=== PATIENT | male | born 1940 | race Caucasian/White ===

== ENCOUNTER → 2016-10-10 | Outpatient (CLI) | payer OTHER, MEDICARE ==
--- NOTE | 2016-10-10 14:54 | KCIC ---
Examination: MRI of the left ankle without contrast HISTORY History of generalized left foot, ankle pain, swelling, for 2 months. COMPARISON None available. TECHNIQUE Multiplanar, multisequence imaging of the left ankle without contrast Findings : The attachment of the Achilles tendon to the calcaneus grossly appears intact. The attachment of the plantar fascia to the inferior aspect of the calcaneus grossly appears intact. There is a vertical oriented low T1, low T2 signal identified in the anterior process of the calcaneus, best visualized on series 4 image #9 likely fracture probably stress fracture with a moderate trabecular edema identified in the anterior calcaneus and the lateral aspect of the talus. There is faint subtle low T1 signal identified in the lateral process of the talus with some edema. Small amount of fluid identified about the posterior tibialis tendon, flexor hallucis longus, flexor digitorum tendons. There is moderate tendinosis of the posterior tibialis tendon. Peroneus quartus tendon is identified. There is suggestion of splitting of the peroneus brevis tendon which Chevron appearance on series 5 image #16 could be a longitudinal split tear of the peroneus brevis. Peroneus longus tendon grossly appears intact. The anterior tibialis tendon, extensor compartment tendons grossly appears intact. There is minimal trabecular edema identified in the cuboid bone,. The visualized cuneiform bones, grossly appears unremarkable Mild degenerative changes identified in the talonavicular joint. Mild trabecular edema identified in the anterior and medial talus. There is a obliteration of fat in the sinus tarsi. Small osteophyte formation identified in superior aspect of the talonavicular joint. Moderate soft tissue edema identified surrounding the ankle joint and the hindfoot. Small ankle joint effusion is identified. The visualized anterior tibiofibular and posterior tibiofibular ligament, and posterior talofibular ligament are intact. The anterior talofibular ligament demonstrates increased signal with some undulation could be ligament injury, best visualized on series 8 image #22. There is mild trabecular edema identified in the medial aspect of the talus. The deltoid ligament appears intact. There is mild increased T2 signal identified in the deep fibers of the deltoid ligament. IMPRESSION - Vertical low T1, T2 signal identified in the anterior process of the calcaneus and surrounding moderate trabecular edema likely stress fracture. There is subtle low T1 signal identified in the lateral process of the talus with surrounding moderate patellar edema, question stress fracture or stress reaction changes. - The anterior talofibular ligament is somewhat undulated could be secondary to injury.Few of the fibers appear continuous. 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 - Moderate tendinopathy posterior tibialis tendon. - Small amount of fluid identified about the posterior tibialis tendon, flexor hallucis longus, flexor digitorum tendons likely tenosynovitis. - Faint trabecular edema identified in the medial aspect of the talus at the site of attachment of fibers of the deltoid ligament, nonspecific could be sprain of the deltoid ligament. - Moderate soft tissue edema identified surrounding the ankle joint and the hindfoot, nonspecific. - Small ankle joint effusion. - There is suggestion of splitting of the peroneus brevis tendon which Chevron appearance on series 5 image #16 could be a longitudinal split tear of the peroneus brevis. - Peroneus quartus tendon identified. Electronically signed by: Yogesh Perez (Oct 10, 2016 14:52:55)
--- NOTE | 2016-10-10 15:24 | KCIC ---
Examination: MRI of the left forefoot without contrast. HISTORY History of generalized foot pain, swelling for 2 months. COMPARISON None available. TECHNIQUE Multiplanar, multisequence MR imaging of the left foot were performed without contrast. Findings: Mild trabecular edema identified in the cuboid bone and in the partially visualized distal talus. Degenerative changes identified in the talonavicular joint with small superior osteophyte formation. Partially visualized vertical oriented nondisplaced fracture of the anterior process of the calcaneus identified. The Lisfranc ligament grossly appears intact. The intercuneiform ligaments appear intact. Mild soft tissue edema identified in the forefoot region. The alignment of the tarsal bones, metatarsophalangeal joints, visualized interphalangeal joints grossly appears unremarkable. IMPRESSION 1. Partially visualized vertical oriented nondisplaced fracture of the anterior process of the calcaneus probably stress fracture. 2. Mild trabecular edema identified in the distal calcaneus, cuboid bone and the talus. 3. Degenerative changes talonavicular joint. Electronically signed by: Yogesh Perez (Oct 10, 2016 15:23:52)
== END | disposition home or self-care (01) ==
LOC: KCIC MRI 13:01
PROVIDERS: ATTEND Orthopaedic Surgery Sports Medicine
DX: M79.672 Pain in left foot (principal); M25.472 Effusion, left ankle
CPT/HCPCS: 73718; 73721

== ENCOUNTER 2017-06-05 09:15 | Outpatient (CLI) | payer OTHER ==
[~2017-06-05] VITALS: Ht 180.3 cm; Wt 102.5 kg
[2017-06-05] VITALS (14 sets, daily range): BP systolic 147–185; BP diastolic 78–115
[2017-06-05] MEDS ORDERED: ATOR10TA60 PO (09:36)
[2017-06-05] MEDS ORDERED: LOSA50TA6 PO (09:37)
[2017-06-05] MEDS ORDERED: FURO-69 PO (09:37)
[2017-06-05] MEDS ORDERED: CARV3.122 PO (09:38)
[2017-06-05] MEDS ORDERED: LEVO5TAB2 PO (09:39)
[2017-06-05] MEDS ORDERED: CYCL10TA2 PO (09:40)
[2017-06-05 09:45] LABS: HEMATOCRIT 40.1 % (39.0-53.0); HEMOGLOBIN 13.1 g/dL (13.0-17.5); RED BLOOD COUNT 4.96 x10^6/uL (4.30-5.70); RED CELL DISTRIBUTION WIDTH 15.2 % (11.5-14.5); WHITE BLOOD COUNT 5.8 x10^3/uL (4.0-11.0)
[2017-06-05 09:53] LABS: INR 1.3 (0.8-1.1); PROTHROMBIN TIME PATIENT 15.1 SEC (11.7-14.0)
[2017-06-05] MEDS ORDERED: LIDOCAINE 2% 20 ML VIAL. ONE (09:54)
[2017-06-05 10:11] LABS: CALCIUM 8.7 mg/dL (8.5-10.1); CREATININE 0.9 mg/dL (0.7-1.3); GFR 82.3; POTASSIUM 3.9 mmol/L (3.5-5.1)
[2017-06-05] MEDS ORDERED: IOHEXOL 300 MG/ML 100ML VIAL. ONE (10:13)
[2017-06-05] MEDS ORDERED: VERAPAMIL 5 MG/2 ML VIAL. ONE (10:27)
[2017-06-05] MEDS ORDERED: MIDAZOLAM HCL/PF 5 MG/5 ML VIAL. ONE (10:27)
[2017-06-05] MEDS ORDERED: fentaNYL PF VIAL 100 MCG/2 ML VIAL ONE (10:27)
[2017-06-05] MEDS ORDERED: HEPARIN for IV BOLUS 10,000 UNIT/10 ML VIAL. ONE (10:27)
[2017-06-05] MEDS ORDERED: NITROGLYCERIN 200 MCG/2 ML SYRINGE FOR CATH/VASC LAB. ONE (10:29)
--- NOTE | 2017-06-05 10:36 | PDOC ---
MODERATE SEDATION ASSESSMENT RISKS/ALTERNATIVES Risks/Alternatives Risks and alternatives of this type of sedation and procedure discussed with: RISK/ALTERNATIVES: Patient H & P ON CHART H & P H & P on chart and reviewed for co-morbid conditions and appropriate labs. H&P ON CHART: Yes STATUS PREG STATUS ASSESSED: N/A MEDS/ALLERGIES REVIEWED Meds/Allergies Reviewed Medications and Allergies including time and route of recently administered narcotics and sedatives. MEDS/ALLERGIES REVIEWED: Yes ASA RATING ASA RATING: II AIRWAY ASSESSMENT Airway Assessment Airway patency, oral function limitations, presence of caps, crowns, dentures, partials, and ability to extend neck assessed. AIRWAY ASSESSMENT: Yes MALLAMPATI SCORE MALLAMPATI SCORE: II PRE-SEDATION ASSESSMENT PRE-SEDATION ASSESSMENT: Yes MEKA VARGAS MD Jun 05, 2017 10:36
[2017-06-05] MEDS ORDERED: NITROGLYCERIN 200 MCG/2 ML SYRINGE FOR CATH/VASC LAB. IART ONE (10:45)
[2017-06-05] MEDS ORDERED: IOHEXOL 300 MG/ML 100ML VIAL. IART ONE (10:45)
[2017-06-05] MEDS ORDERED: HEPARIN for IV BOLUS 10,000 UNIT/10 ML VIAL. IART ONE (10:45)
[2017-06-05] MEDS ORDERED: VERAPAMIL 5 MG/2 ML VIAL. IART ONE (10:45)
[2017-06-05] MEDS ORDERED: fentaNYL PF VIAL 100 MCG/2 ML VIAL IV ONE (10:45)
[2017-06-05] MEDS ORDERED: LIDOCAINE 2% 20 ML VIAL. IJ ONE (10:45)
[2017-06-05] MEDS ORDERED: MIDAZOLAM HCL/PF 5 MG/5 ML VIAL. IV ONE (10:45)
[2017-06-05] MEDS ORDERED: CONTRAST GIVEN MC PRN (11:00)
[2017-06-05] MEDS ORDERED: IV 1/2 NORMAL SALINE 1,000 ML IV ONE (11:30)
--- NOTE | 2017-06-05 13:05 | CARD ---
APPROVED REPORT Procedure(s) performed: Coronaries, LV Moderate Sedation: 51 Minutes HISTORY : The patient is a 76 year-old male with a history of . INDICATION The indication(s) include : peripheral edema, dyspnea. PROCEDURE NARRATIVE The patient was brought electively to the cardiac catheterization lab. A timeout was performed confi rming the patient's name, date of , procedure, and site of procedure. All necessary personnel w ere wearing the appropriate protective equipment and radiation monitor devices. After explaining the risks and benefits of the procedure and alternatives, informed consent was obtained. (See nursing no arnaud for medications administered). The right wrist was sterilely prepped and draped in the usual fas hion. The right wrist was infiltrated with 1 mL of 2% lidocaine for subcutaneous anesthesia. A 6 Fr ench Terumo glide sheath was inserted into the right radial artery without difficulty. Attempts to e ngage the coronary arteries with a TIG 4.0 and Peng catheters were unsuccessful due to subclavian to rtuousity. Right groin access in the RCFA was obtained via the modified seldinger technique under 1% lidocaine local anesthesia. A 6Fr sheath was placed. Right and left coronary angiography was perform ed using a JL4 and JR4 catheters. Left ventricular end diastolic pressure was obtained with a Peng catheter and pullback was performed. Left ventriculography deferred due to renal insufficiency. All catheter exchanges and advancements were performed over a guidewire. At case completion the right ra dial sheath was removed and a Terumo radial band was applied with 13 ml of air. The groin sheath was removed and an Angioseal device was placed for hemostasis. The patient tolerated the procedure well and there were no immediate complications. HEMODYNAMICS: LVEDP 18 mm Hg No gradient on LV to aortic pullback. LEFT VENTRICULOGRAM: Deferred. CORONARY ANGIOGRAPHY: LM is a large caliber vessel with normal angiographic appearance. LAD is a large caliber vessel with mild luminal irregularities. D1 is a moderate caliber vessel with mild luminal irregularities. LCx is a large caliber non-dominant vessel with a mid 40% stenosis. There is also mild focal ectasia in the mid segment. OM1 is a moderate caliber vessel with normal angiographic appearance. RCA is a large caliber dominant vessel with proximal/mid calcification with mild luminal irregulariti es. RPDA and RPL are moderate caliber vessels with normal angiographic appearance. Conclusion 1. No significant coronary artery disease. 2. Normal left sided filling pressures. Recommendations Aggressive Medical Therapy
[2017-06-05] MEDS ORDERED: 0.9 % SODIUM CHLORIDE 10 ML DISP.SYRIN. IV PRN (13:15)
[2017-06-05] MEDS ORDERED: NITROGLYCERIN SUBLINGUAL 0.4 MG BOTTLE OF 25. SL PRN (13:15)
--- NOTE | 2017-06-11 08:06 | CARD ---
APPROVED REPORT EXAM: Two-dimensional and M-mode echocardiogram with Doppler and color Doppler. Other Information Quality : Fair INDICATION post cath 2D DIMENSIONS RVDd2.9 (2.9-3.5cm)Left Atrium(2D)4.0 (1.6-4.0cm) IVSd1.2 (0.7-1.1cm)Aortic Root(2D)3.3 (2.0-3.7cm) LVDd4.6 (3.9-5.9cm)LVOT Diameter2.0 (1.8-2.4cm) PWd1.2 (0.7-1.1cm)LVDs3.9 (2.5-4.0cm) SV34.1 mlLVEF(%)50.0 (>50%) Aortic Valve AoV Peak Temo.112.4cm/sAoV VTI24.4cm AO Peak GR.5.1mmHgLVOT Peak Temo.82.9cm/s LVOT VTI 15.81cmAO Mean GR.3mmHg DOMENICA (VMAX)2.16cy0ZAB (VTI)2.10cm2 Mitral Valve MV E Ypldvnwn95.4cm/sMV DECEL [id number] MV A Tsjklnur14.3cm/sMV E Mean Gr.1mmHg MV ZXM19pjA/A Ratio1.2 MV A Aifzfmmn640lxXSP (PHT)5.81cm2 TDI E/Lateral E'6.8E/Medial E'10.7 Pulmonary Valve PV Peak Rqclhhem09.3cm/sPV Peak Grad.2mmHg RVOT VTI14.2cm Tricuspid Valve TR P. Qsiamdqx44jc/sTR Peak Gr.1mmHg Pulmonary Vein S1 Kfmyfnez30.3cm/sD2 Gbuoswvh07.0cm/s LEFT VENTRICLE The left ventricle is normal size. There is borderline concentric left ventricular hypertrophy. The l eft ventricular systolic function is low normal. The ejection fraction is estimated at 50%. There is normal LV segmental wall motion. The left ventricular diastolic function and filling is normal for ag e. RIGHT VENTRICLE The right ventricle is normal size. There is normal right ventricular wall thickness. The right ventr icular systolic function is normal. ATRIA The left atrium size is normal. The right atrium size is normal. The interatrial septum is intact wit h no evidence for an atrial septal defect or patent foramen ovale as noted on 2-D or Doppler imaging. AORTIC VALVE The aortic valve is normal in structure and function. Doppler and Color Flow revealed trace aortic re gurgitation. There is no significant aortic valvular stenosis. MITRAL VALVE The mitral valve is normal in structure and function. Doppler and Color Flow revealed trace mitral re gurgitation. TRICUSPID VALVE The tricuspid valve is normal in structure and function. Doppler and Color Flow revealed no tricuspid valve regurgitation noted. PULMONIC VALVE The pulmonary valve is normal in structure and function. Doppler and Color Flow revealed no pulmonic valvular regurgitation. GREAT VESSELS The aortic root is normal in size. Normal pulmonary venous flow (Doppler). The IVC is normal in size and collapses >50% with inspiration. PERICARDIAL EFFUSION There is no pleural effusion. There is no evidence of significant pericardial effusion. Critical Notification Critical Value: No <Conclusion> The left ventricular systolic function is low normal. The ejection fraction is estimated at 50%. Trace aortic regurgitation. Trace mitral regurgitation. There is no evidence of significant pericardial effusion.
== END 2017-06-05 16:00 | disposition home or self-care (01) ==
LOC: CCL 09:15
PROVIDERS: ATTEND Internal Medicine Cardiovascular Disease
DX: I25.10 Atherosclerotic heart disease of native coronary artery without angina pectoris (principal); E78.00 Pure hypercholesterolemia, unspecified; I10 Essential (primary) hypertension; F17.200 Nicotine dependence, unspecified, uncomplicated
CPT/HCPCS: 36415; 80048; 85027; 85610; 93306; 93458; 99152; 99153; C1769; C1892; J1644; J2250; J3010; J3490; Q9967; J2001

== ENCOUNTER 2018-02-08 05:54 | Inpatient (IN) | payer MEDICARE ==
[2018-02-08] MEDS: IOHEXOL 300 MG/ML 100ML VIAL. IV (06:57)
[2018-02-08] MEDS ORDERED: CONTRAST GIVEN. MC (07:00)
[2018-02-08] MEDS ORDERED: ACETAMINOPHEN 325 MG TABLET. PO (07:00)
[2018-02-08] MEDS ORDERED: ONDANSETRON PF 4 MG/2 ML VIAL. IV (07:00)
[2018-02-08 07:26] LABS: BASO % 0 % (0-3); EOS % 1 % (0-3); HEMATOCRIT 33.5 % (39.0-53.0); HEMOGLOBIN 11.1 g/dL (13.0-17.5); LYMPH # 0.8 x10^3/uL (1.0-4.8); LYMPH % 10 % (24-48); MEAN CORPUSCULAR HEMOGLOBIN 27 pg (25-35); MEAN CORPUSCULAR HGB CONC 33 g/dL (31-37); MEAN CORPUSCULAR VOLUME 81 fL (79-100); MONO # 0.5 x10^3/uL (0.0-1.1); MONO % 7 % (0-9); NEUT # 6.5 x10^3uL (1.8-7.7); NEUT % 82 % (31-73); PLATELET COUNT 342 x10^3/uL (140-400); RED BLOOD COUNT 4.15 x10^6/uL (4.30-5.70); RED CELL DISTRIBUTION WIDTH 17.2 % (11.5-14.5); WHITE BLOOD COUNT 7.9 x10^3/uL (4.0-11.0)
[2018-02-08 07:31] LABS: ADD MAN DIFF? YES
[2018-02-08 07:34] LABS: ANION GAP 5 (6-14); BLOOD UREA NITROGEN 11 mg/dL (8-26); CALCIUM 7.8 mg/dL (8.5-10.1); CARBON DIOXIDE 33 mmol/L (21-32); CHLORIDE 100 mmol/L (98-107); CREATININE 0.8 mg/dL (0.7-1.3); GLUCOSE 126 mg/dL (70-99); POTASSIUM 3.3 mmol/L (3.5-5.1); SODIUM 138 mmol/L (136-145)
[2018-02-08 07:39] LABS: INR 1.5 (0.8-1.1); PROTHROMBIN TIME PATIENT 17.8 SEC (11.7-14.0)
[2018-02-08] MEDS: BUDESONIDE 0.5 MG/2 ML NEBU. NEB ×2 (08:00→19:59)
[2018-02-08 09:10] LABS: % BANDS 1 % (0-9); % LYMPHS 9 % (24-48); % MONOS 4 % (0-10); % SEGS 86 % (35-66)
[2018-02-08 09:11] LABS: ANISOCYTOSIS PRESENT; PLT ESTIMATE ADEQUATE (ADEQUATE)
[2018-02-08] MEDS: cefTRIAXone IV Push 1 GM VIAL. IVP (09:22)
[2018-02-08] MEDS: MAGNESIUM SULFATE 2GM 50 ML IV (09:22)
[2018-02-08] MEDS: IPRATROPIUM BROMIDE 0.5 MG/2.5 ML NEBU. NEB ×4 (09:22→19:59)
[2018-02-08] MEDS: POTASSIUM CHLORIDE 20 MEQ TABLET.ER. PO (09:23)
[2018-02-08] MEDS: ENOXAPARIN 40 MG/0.4 ML SYRINGE. SQ (10:30)
[2018-02-08] MEDS: PANTOPRAZOLE 40 MG TABLET.DR. PO (10:46)
[2018-02-08] MEDS: LOSARTAN POTASSIUM 50 MG TABLET. PO (11:14)
[2018-02-08] MEDS: CARVEDILOL 3.125 MG TABLET. PO ×2 (11:14→14:16)
[2018-02-08] MEDS: ESMOLOL 2500MG/250ML PREMIX 250 ML IV ×3 (14:45→20:55)
[2018-02-08 18:12] LABS: MRSA BY PCR Negative (Negative)
[2018-02-08] MEDS: ATORVASTATIN CALCIUM 40 MG TABLET. PO (20:18)
[2018-02-09] MEDS: ESMOLOL 2500MG/250ML PREMIX 250 ML IV ×10 (00:32→23:53)
[2018-02-09] MEDS: IPRATROPIUM BROMIDE 0.5 MG/2.5 ML NEBU. NEB ×4 (07:28→19:42)
[2018-02-09] MEDS: BUDESONIDE 0.5 MG/2 ML NEBU. NEB ×2 (07:29→19:42)
[2018-02-09] MEDS: CARVEDILOL 3.125 MG TABLET. PO (08:00)
[2018-02-09 08:12] LABS: ANION GAP 4 (6-14); BLOOD UREA NITROGEN 11 mg/dL (8-26); CALCIUM 8.2 mg/dL (8.5-10.1); CARBON DIOXIDE 30 mmol/L (21-32); CHLORIDE 102 mmol/L (98-107); CREATININE 0.8 mg/dL (0.7-1.3); GLUCOSE 125 mg/dL (70-99); POTASSIUM 4.3 mmol/L (3.5-5.1); SODIUM 136 mmol/L (136-145)
[2018-02-09] MEDS: PANTOPRAZOLE 40 MG TABLET.DR. PO (08:14)
[2018-02-09] MEDS: cefTRIAXone IV Push 1 GM VIAL. IVP (08:14)
[2018-02-09] MEDS: LOSARTAN POTASSIUM 50 MG TABLET. PO (09:00)
[2018-02-09] MEDS: LACTOBACILLUS RHAMNOSUS GG 1 CAPSULE. PO ×2 (09:00→20:34)
[2018-02-09] MEDS: ENOXAPARIN 40 MG/0.4 ML SYRINGE. SQ (09:10)
[2018-02-09] MEDS: FUROSEMIDE 20 MG/2 ML VIAL. IVP (09:18)
[2018-02-09] MEDS ORDERED: SODIUM CHLORIDE 0.9% IV (12:45)
[2018-02-09] MEDS ORDERED: LABETALOL IV (12:45)
[2018-02-09] MEDS: ATORVASTATIN CALCIUM 40 MG TABLET. PO (20:33)
[2018-02-09] MEDS: ALPRAZolam 0.25 MG TABLET PO (20:33)
[2018-02-09] MEDS: MORPHINE SULFATE 2 MG/ML DISP.SYRIN. IV (21:42)
[2018-02-10] MEDS: ESMOLOL 2500MG/250ML PREMIX 250 ML IV ×3 (02:12→07:16)
[2018-02-10 04:57] LABS: HEMATOCRIT 35.8 % (39.0-53.0); MEAN CORPUSCULAR HEMOGLOBIN 27 pg (25-35); MEAN CORPUSCULAR HGB CONC 33 g/dL (31-37); MEAN CORPUSCULAR VOLUME 82 fL (79-100); PLATELET COUNT 364 x10^3/uL (140-400); RED BLOOD COUNT 4.37 x10^6/uL (4.30-5.70); RED CELL DISTRIBUTION WIDTH 17.4 % (11.5-14.5); WHITE BLOOD COUNT 6.1 x10^3/uL (4.0-11.0)
[2018-02-10 05:00] LABS: ANION GAP 6 (6-14); BLOOD UREA NITROGEN 13 mg/dL (8-26); CALCIUM 8.1 mg/dL (8.5-10.1); CARBON DIOXIDE 26 mmol/L (21-32); CHLORIDE 101 mmol/L (98-107); CREATININE 0.9 mg/dL (0.7-1.3); GLUCOSE 157 mg/dL (70-99); POTASSIUM 3.9 mmol/L (3.5-5.1); SODIUM 133 mmol/L (136-145)
[2018-02-10] MEDS: BUDESONIDE 0.5 MG/2 ML NEBU. NEB ×2 (07:40→15:44)
[2018-02-10] MEDS: IPRATROPIUM BROMIDE 0.5 MG/2.5 ML NEBU. NEB ×4 (07:40→19:30)
[2018-02-10] MEDS ORDERED: CONTRAST GIVEN. MC (09:45)
[2018-02-10] MEDS: IOHEXOL 300 MG/ML 100ML VIAL. IV (09:52)
[2018-02-10] MEDS: cefTRIAXone IV Push 1 GM VIAL. IVP (10:31)
[2018-02-10] MEDS: PANTOPRAZOLE 40 MG TABLET.DR. PO ×2 (10:32→10:41)
[2018-02-10] MEDS: LOSARTAN POTASSIUM 50 MG TABLET. PO (10:33)
[2018-02-10] MEDS: LACTOBACILLUS RHAMNOSUS GG 1 CAPSULE. PO ×2 (10:33→21:41)
[2018-02-10] MEDS ORDERED: LABETALOL 20 MG/4 ML DISP.SYRIN. IVP (13:00)
[2018-02-10] MEDS: METOPROLOL TART IMMED RELEASE 25 MG TABLET. PO (13:21)
[2018-02-10 17:43] LABS: INR 1.5 (0.8-1.1); PARTIAL THROMBOPLASTIN TIME 34 SEC (24-38); PROTHROMBIN TIME PATIENT 17.9 SEC (11.7-14.0)
[2018-02-10] MEDS: ATORVASTATIN CALCIUM 40 MG TABLET. PO (21:41)
[2018-02-10] MEDS: ALPRAZolam 0.25 MG TABLET PO (21:41)
[2018-02-11 05:25] LABS: HEMATOCRIT 38.4 % (39.0-53.0); HEMOGLOBIN 12.8 g/dL (13.0-17.5); MEAN CORPUSCULAR HEMOGLOBIN 27 pg (25-35); MEAN CORPUSCULAR HGB CONC 33 g/dL (31-37); MEAN CORPUSCULAR VOLUME 81 fL (79-100); PLATELET COUNT 444 x10^3/uL (140-400); RED BLOOD COUNT 4.76 x10^6/uL (4.30-5.70); RED CELL DISTRIBUTION WIDTH 17.3 % (11.5-14.5); WHITE BLOOD COUNT 6.3 x10^3/uL (4.0-11.0)
[2018-02-11 06:07] LABS: ANION GAP 6 (6-14); BLOOD UREA NITROGEN 10 mg/dL (8-26); CALCIUM 8.2 mg/dL (8.5-10.1); CARBON DIOXIDE 31 mmol/L (21-32); CHLORIDE 103 mmol/L (98-107); CREATININE 0.8 mg/dL (0.7-1.3); GLUCOSE 118 mg/dL (70-99); MAGNESIUM 1.8 mg/dL (1.8-2.4); POTASSIUM 3.1 mmol/L (3.5-5.1); SODIUM 140 mmol/L (136-145)
[2018-02-11] MEDS ORDERED: ePHEDrine PF IN SALINE 50 MG/5 ML DISP.SYRIN IV (06:18)
[2018-02-11] MEDS ORDERED: HEPARIN 30,000 UNIT/30 ML VIAL. ×3 (06:18→14:29)
[2018-02-11] MEDS ORDERED: ROCURONIUM 100 MG/10 ML VIAL. (06:18)
[2018-02-11] MEDS ORDERED: PHENYLEPHRINE 10 MG/ML VIAL. (06:18)
[2018-02-11] MEDS ORDERED: ETOMIDATE 20 MG/10 ML VIAL. IV (06:18)
[2018-02-11] MEDS ORDERED: SUFentanil 100 MCG/2 ML AMPUL. (06:19)
[2018-02-11] MEDS ORDERED: NITROGLYCERIN PREMIX 250 ML IV (06:19)
[2018-02-11] MEDS ORDERED: MIDAZOLAM HCL/PF 2 MG/2 ML VIAL. ×6 (06:20→15:03)
[2018-02-11] MEDS ORDERED: GELATIN SPONGE SIZE 100. (06:36)
[2018-02-11] MEDS ORDERED: THROMBIN TOPICAL 20,000 UNIT SPRAY.SYRN KIT TP (06:36)
[2018-02-11] MEDS ORDERED: SURGICEL NU-KNIT 3X4. (06:36)
[2018-02-11] MEDS: TRANEXAMIC ACID 1,000 MG in IV NORMAL SALINE 50ML 50 ML INJ ×2 (07:30→08:30)
[2018-02-11] MEDS: MANNITOL 20% PREMIX 500 ML IV (07:45)
[2018-02-11] MEDS: BUDESONIDE 0.5 MG/2 ML NEBU. NEB ×2 (08:00→19:43)
[2018-02-11] MEDS: IPRATROPIUM BROMIDE 0.5 MG/2.5 ML NEBU. NEB ×4 (08:00→19:43)
[2018-02-11] MEDS: cefTRIAXone IV Push 1 GM VIAL. IVP (08:00)
[2018-02-11] MEDS ORDERED: HEPARIN for IV BOLUS 10,000 UNIT/10 ML VIAL. ×4 (08:23→14:29)
[2018-02-11] MEDS ORDERED: AMINOCAPROIC ACID 5,000 MG/20 ML VIAL. IV (08:41)
[2018-02-11] MEDS: LACTOBACILLUS RHAMNOSUS GG 1 CAPSULE. PO (09:00)
[2018-02-11] MEDS: VANCOMYCIN 10GM VIAL for OR. (09:01)
[2018-02-11] MEDS: PAPAVERINE 60 MG/2 ML VIAL FOR OR ONLY. (09:19)
[2018-02-11] MEDS ORDERED: ISOFLURANE > 120 MINUTES. IH (09:40)
[2018-02-11] MEDS: POTASSIUM CHLORIDE 15 MEQ, SODIUM BICARBONATE VIAL 12.5 MEQ in IV ELECTROLYTE-S (PH 7.4... IRR (10:18)
[2018-02-11] MEDS: POTASSIUM CHLORIDE 70 MEQ, SODIUM BICARBONATE VIAL 12.5 MEQ, LIDOCAINE 2% 24 ML in IV E... IRR (10:18)
[2018-02-11] MEDS: INSULIN REGULAR VIAL 150 UNIT in 0.9 % SODIUM CHLORIDE 150ML 150 ML IV ×2 (10:30→17:12)
[2018-02-11] MEDS ORDERED: PROPOFOL 20 ML IV (10:55)
[2018-02-11] MEDS ORDERED: ROCURONIUM 50 MG/5 ML VIAL. (11:43)
[2018-02-11] MEDS ORDERED: POTASSIUM CHLORIDE (12:26)
[2018-02-11] MEDS ORDERED: PROTAMINE 250 MG/25 ML VIAL IV ×2 (12:31→13:56)
[2018-02-11 13:57] LABS: IMMEDIATE SPIN CROSSMATCH 1
[2018-02-11] MEDS: SURGICEL HEMOSTAT 4X8 EACH. (14:24)
[2018-02-11] MEDS ORDERED: MAGNESIUM SULFATE 5 GM/10 ML VIAL. (14:29)
[2018-02-11] MEDS ORDERED: LIDOCAINE 1% PF 5 ML VIAL. (14:29)
[2018-02-11] MEDS ORDERED: ALBUMIN HUMAN 25% 200 ML IV (14:29)
[2018-02-11] MEDS ORDERED: CALCIUM CHLORIDE 1,000 MG/10 ML DISP.SYRIN (14:29)
[2018-02-11 14:42] LABS: HEMATOCRIT 22.1 % (39.0-53.0); PLATELET COUNT 243 x10^3/uL (140-400); WHITE BLOOD COUNT 14.9 x10^3/uL (4.0-11.0)
[2018-02-11 14:46] LABS: HEMOGLOBIN 7.2 g/dL (13.0-17.5)
[2018-02-11 14:53] LABS: FIBRINOGEN 304 mg/dL (200-440); INR 1.9 (0.8-1.1); PARTIAL THROMBOPLASTIN TIME 42 SEC (24-38)
[2018-02-11 14:59] LABS: PROTHROMBIN TIME PATIENT 21.3 SEC (11.7-14.0)
[2018-02-11 15:45] LABS: IMMEDIATE SPIN CROSSMATCH 1 8
[2018-02-11] MEDS ORDERED: ONDANSETRON PF 4 MG/2 ML VIAL. IV (16:00)
[2018-02-11] MEDS ORDERED: ELECTROLYTE (ICU) PROTOCOL. MC (16:00)
[2018-02-11] MEDS ORDERED: MEPERIDINE PF 25 MG/ML VIAL. IV (16:00)
[2018-02-11] MEDS ORDERED: AMIODARONE 900 MG in IV DEXTROSE 5% 500 ML IV (16:00)
[2018-02-11] MEDS ORDERED: BISACODYL 10 MG SUPP.RECT. PR (16:00)
[2018-02-11] MEDS ORDERED: AMIODARONE 150 MG in IV DEXTROSE 5% 100ML 100 ML IV (16:00)
[2018-02-11] MEDS ORDERED: PROCHLORPERAZINE 10 MG/2 ML VIAL. IV (16:00)
[2018-02-11] MEDS ORDERED: 0.9 % SODIUM CHLORIDE 10 ML DISP.SYRIN. IV (16:00)
[2018-02-11] MEDS ORDERED: DEXTROSE 50% 25 GM / 50ML DISP.SYRIN. IV (16:00)
[2018-02-11] MEDS ORDERED: MAGNESIUM SULFATE 1GM 100 ML IV (16:00)
[2018-02-11] MEDS ORDERED: ALBUTEROL SULFATE 2.5 MG/3 ML NEBU. NEB (16:00)
[2018-02-11 16:26] LABS: ART BE ISTAT 8 mmol/L (0-3); ART BE ISTAT 9 mmol/L (0-3); ART GLUC ISTAT 122 mg/dL (70-99); ART GLUC ISTAT 136 mg/dL (70-99); ART HCO3 ISTAT 31 mmol/L (21-28); ART HCO3 ISTAT 32 mmol/L (21-28); ART HCT ISTAT 31 % (37-52); ART HCT ISTAT 36 % (37-52); ART HGB ISTAT 10.5 g/dL (14-18); ART HGB ISTAT 12.2 g/dL (14-18); ART ION CA ISTAT 1.06 mmol/L (1.13-1.32); ART ION CA ISTAT 1.09 mmol/L (1.13-1.32); ART K ISTAT 2.9 mmol/L (3.5-5.0); ART K ISTAT 3.2 mmol/L (3.5-5.0); ART NA ISTAT 141 mmol/L (135-145); ART NA ISTAT 142 mmol/L (135-145); ART PCO2 ISTAT 36 mmHg (35-45); ART PCO2 ISTAT 40 mmHg (35-45); ART PH ISTAT 7.51 (7.35-7.45); ART PH ISTAT 7.54 (7.35-7.45); ART PO2 ISTAT 153 mmHg (75-100); ART PO2 ISTAT 168 mmHg (75-100); ART SAT O2 SAT 100 % (95-99); ART TCO2 ISTAT 32 mmol/L (21-32); ART TCO2 ISTAT 33 mmol/L (21-32); TOSPEC ART
[2018-02-11 16:27] LABS: ART BE ISTAT 10 mmol/L (0-3); ART BE ISTAT 11 mmol/L (0-3); ART BE ISTAT 4 mmol/L (0-3); ART BE ISTAT 5 mmol/L (0-3); ART BE ISTAT 6 mmol/L (0-3); ART BE ISTAT 8 mmol/L (0-3); ART BE ISTAT 9 mmol/L (0-3); ART GLUC ISTAT 124 mg/dL (70-99); ART GLUC ISTAT 127 mg/dL (70-99); ART GLUC ISTAT 128 mg/dL (70-99); ART GLUC ISTAT 132 mg/dL (70-99); ART GLUC ISTAT 134 mg/dL (70-99); ART GLUC ISTAT 138 mg/dL (70-99); ART GLUC ISTAT 140 mg/dL (70-99); ART GLUC ISTAT 146 mg/dL (70-99); ART HCO3 ISTAT 28 mmol/L (21-28); ART HCO3 ISTAT 29 mmol/L (21-28); ART HCO3 ISTAT 30 mmol/L (21-28); ART HCO3 ISTAT 31 mmol/L (21-28); ART HCO3 ISTAT 32 mmol/L (21-28); ART HCO3 ISTAT 36 mmol/L (21-28); ART HCT ISTAT 23 % (37-52); ART HCT ISTAT 26 % (37-52); ART HCT ISTAT 29 % (37-52); ART HCT ISTAT 30 % (37-52); ART HCT ISTAT 31 % (37-52); ART HGB ISTAT 10.2 g/dL (14-18); ART HGB ISTAT 10.5 g/dL (14-18); ART HGB ISTAT 7.8 g/dL (14-18); ART HGB ISTAT 8.8 g/dL (14-18); ART HGB ISTAT 9.9 g/dL (14-18); ART ION CA ISTAT 0.98 mmol/L (1.13-1.32); ART ION CA ISTAT 1.03 mmol/L (1.13-1.32); ART ION CA ISTAT 1.05 mmol/L (1.13-1.32); ART ION CA ISTAT 1.06 mmol/L (1.13-1.32); ART ION CA ISTAT 1.07 mmol/L (1.13-1.32); ART ION CA ISTAT 1.09 mmol/L (1.13-1.32); ART K ISTAT 3.1 mmol/L (3.5-5.0); ART K ISTAT 3.2 mmol/L (3.5-5.0); ART K ISTAT 3.6 mmol/L (3.5-5.0); ART K ISTAT 3.9 mmol/L (3.5-5.0); ART NA ISTAT 138 mmol/L (135-145); ART NA ISTAT 139 mmol/L (135-145); ART NA ISTAT 140 mmol/L (135-145); ART NA ISTAT 141 mmol/L (135-145); ART NA ISTAT 142 mmol/L (135-145); ART PCO2 ISTAT 22 mmHg (35-45); ART PCO2 ISTAT 39 mmHg (35-45); ART PCO2 ISTAT 40 mmHg (35-45); ART PCO2 ISTAT 41 mmHg (35-45); ART PCO2 ISTAT 42 mmHg (35-45); ART PCO2 ISTAT 43 mmHg (35-45); ART PCO2 ISTAT 54 mmHg (35-45); ART PCO2 ISTAT 57 mmHg (35-45); ART PCO2 ISTAT 60 mmHg (35-45); ART PH ISTAT 7.33 (7.35-7.45); ART PH ISTAT 7.36 (7.35-7.45); ART PH ISTAT 7.44 (7.35-7.45); ART PH ISTAT 7.45 (7.35-7.45); ART PH ISTAT 7.46 (7.35-7.45); ART PH ISTAT 7.51 (7.35-7.45); ART PH ISTAT 7.74 (7.35-7.45); ART PO2 ISTAT 157 mmHg (75-100); ART PO2 ISTAT 159 mmHg (75-100); ART PO2 ISTAT 217 mmHg (75-100); ART PO2 ISTAT 341 mmHg (75-100); ART PO2 ISTAT 351 mmHg (75-100); ART PO2 ISTAT 356 mmHg (75-100); ART PO2 ISTAT 441 mmHg (75-100); ART PO2 ISTAT 459 mmHg (75-100); ART PO2 ISTAT 560 mmHg (75-100); ART SAT O2 SAT 100 % (95-99); ART SAT O2 SAT 99 % (95-99); ART TCO2 ISTAT 29 mmol/L (21-32); ART TCO2 ISTAT 31 mmol/L (21-32); ART TCO2 ISTAT 32 mmol/L (21-32); ART TCO2 ISTAT 33 mmol/L (21-32); ART TCO2 ISTAT 38 mmol/L (21-32); TOSPEC ART
[2018-02-11 16:49] LABS: BASE EXCESS COOX 2 mmol/L (-3-3); CARBON MONOXIDE 0.3 % (0.0-1.9); HCO3 COOX 26 mmol/L (21-28); METHEMOGLOBIN 0.4 % (0.0-1.9); OXYHEMOGLOBIN 96.4 %; PCO2 COOX 39 mmHg (35-46); PH COOX 7.45 (7.35-7.45); PO2 COOX 104 mmHg (65-108); SAT O2 COOX 97 % (92-99); TOTAL HEMOGLOBIN 10.8 g/dL
[2018-02-11 16:51] LABS: FIO2 COOX 80
[2018-02-11 16:52] LABS: HEMATOCRIT 28.6 % (39.0-53.0); HEMOGLOBIN 9.3 g/dL (13.0-17.5); MEAN CORPUSCULAR HEMOGLOBIN 27 pg (25-35); MEAN CORPUSCULAR HGB CONC 33 g/dL (31-37); MEAN CORPUSCULAR VOLUME 81 fL (79-100); PLATELET COUNT 261 x10^3/uL (140-400); RED BLOOD COUNT 3.52 x10^6/uL (4.30-5.70); RED CELL DISTRIBUTION WIDTH 17.1 % (11.5-14.5); WHITE BLOOD COUNT 13.4 x10^3/uL (4.0-11.0)
[2018-02-11 17:01] LABS: ANION GAP 7 (6-14); BLOOD UREA NITROGEN 11 mg/dL (8-26); CALCIUM 8.6 mg/dL (8.5-10.1); CARBON DIOXIDE 27 mmol/L (21-32); CHLORIDE 107 mmol/L (98-107); CREATININE 0.8 mg/dL (0.7-1.3); GLUCOSE 175 mg/dL (70-99); MAGNESIUM 2.1 mg/dL (1.8-2.4); POTASSIUM 3.7 mmol/L (3.5-5.1); SODIUM 141 mmol/L (136-145)
[2018-02-11 17:02] LABS: INR 1.5 (0.8-1.1); PROTHROMBIN TIME PATIENT 17.9 SEC (11.7-14.0)
[2018-02-11 17:03] LABS: PARTIAL THROMBOPLASTIN TIME 54 SEC (24-38)
[2018-02-11] MEDS: IV RINGERS,LACTATED 1000ML 1,000 ML IV ×2 (17:11→20:14)
[2018-02-11] MEDS: PROPOFOL 100 ML IV (17:12)
[2018-02-11] MEDS: AMIODARONE 900 MG in IV DEXTROSE 5% 500 ML IV (17:14)
[2018-02-11] MEDS: AMIODARONE 150 MG in IV DEXTROSE 5% 100ML 100 ML IV (17:15)
[2018-02-11] MEDS: POTASSIUM CHLORIDE 20MEQ 50 ML IV ×3 (18:03→19:23)
[2018-02-11 19:20] LABS: POC GLUCOSE 165 mg/dL (70-99)
[2018-02-11 19:20] LABS: POC GLUCOSE 146 mg/dL (70-99)
[2018-02-11 19:20] LABS: POC GLUCOSE 148 mg/dL (70-99)
[2018-02-11 19:49] LABS: ACT+ 149 SEC (90-125)
[2018-02-11 19:50] LABS: ACT+ 539 SEC (90-125)
[2018-02-11 19:50] LABS: ACT+ 496 SEC (90-125)
[2018-02-11 19:50] LABS: ACT+ 427 SEC (90-125)
[2018-02-11 19:50] LABS: ACT+ 569 SEC (90-125)
[2018-02-11 19:50] LABS: ACT+ > 1005 SEC (90-125)
[2018-02-11 19:50] LABS: ACT+ 616 SEC (90-125)
[2018-02-11 19:51] LABS: ACT+ 532 SEC (90-125)
[2018-02-11 19:51] LABS: ACT+ 444 SEC (90-125)
[2018-02-11 19:51] LABS: ACT+ 565 SEC (90-125)
[2018-02-11 19:51] LABS: ACT+ 141 SEC (90-125)
[2018-02-11] MEDS ORDERED: NOREPINEPHRIN 8MG/250ML PREMIX 250 ML IV (20:15)
[2018-02-11] MEDS ORDERED: EPINEPHRINE IV (20:15)
[2018-02-11] MEDS ORDERED: NORMAL SALINE IV (20:15)
[2018-02-11 20:32] LABS: POC GLUCOSE 132 mg/dL (70-99)
[2018-02-11] MEDS: ALBUMIN HUMAN 5% 250 ML IV (20:47)
[2018-02-11] MEDS: FAMOTIDINE 20 MG/2 ML VIAL IVP (20:59)
[2018-02-11 21:28] LABS: POC GLUCOSE 119 mg/dL (70-99)
[2018-02-11 21:49] LABS: HEMATOCRIT 26.7 % (39.0-53.0)
[2018-02-11 21:54] LABS: POTASSIUM 4.1 mmol/L (3.5-5.1)
[2018-02-11 22:06] LABS: BASE EXCESS ABG 2 mmol/L (-3-3); HCO3 ABG 26 mmol/L (21-28); PCO2 ABG 38 mmHg (35-46); PH ABG 7.45 (7.35-7.45); PO2 ABG 80 mmHg (65-108); SAT O2 ABG 95 % (92-99)
[2018-02-11] MEDS: MORPHINE SULFATE 2 MG/ML DISP.SYRIN. IV (22:19)
[2018-02-11 22:29] LABS: POC GLUCOSE 156 mg/dL (70-99)
[2018-02-11 22:30] LABS: FIO2 ABG 40
[2018-02-11] MEDS: ATORVASTATIN CALCIUM 40 MG TABLET. PO (23:24)
[2018-02-11] MEDS: oxyCODONE/APAP 5/325 1 TAB TABLET PO (23:24)
[2018-02-11] MEDS: SENNOSIDES/DOCUSATE 8.6/50MG TABLET. PO (23:25)
[2018-02-11 23:33] LABS: POC GLUCOSE 163 mg/dL (70-99)
[2018-02-12 00:38] LABS: POC GLUCOSE 155 mg/dL (70-99)
[2018-02-12] MEDS: MORPHINE SULFATE 2 MG/ML DISP.SYRIN. IV ×2 (01:14→03:08)
[2018-02-12 01:38] LABS: POC GLUCOSE 149 mg/dL (70-99)
[2018-02-12 02:41] LABS: POC GLUCOSE 125 mg/dL (70-99)
[2018-02-12 03:49] LABS: POC GLUCOSE 134 mg/dL (70-99)
[2018-02-12 04:55] LABS: POC GLUCOSE 133 mg/dL (70-99)
[2018-02-12 05:04] LABS: HEMATOCRIT 28.9 % (39.0-53.0); HEMOGLOBIN 9.5 g/dL (13.0-17.5); MEAN CORPUSCULAR HEMOGLOBIN 27 pg (25-35); MEAN CORPUSCULAR HGB CONC 33 g/dL (31-37); MEAN CORPUSCULAR VOLUME 81 fL (79-100); PLATELET COUNT 290 x10^3/uL (140-400); RED BLOOD COUNT 3.57 x10^6/uL (4.30-5.70); RED CELL DISTRIBUTION WIDTH 17.3 % (11.5-14.5); WHITE BLOOD COUNT 11.9 x10^3/uL (4.0-11.0)
[2018-02-12 05:25] LABS: ANION GAP 6 (6-14); BLOOD UREA NITROGEN 12 mg/dL (8-26); CALCIUM 8.6 mg/dL (8.5-10.1); CARBON DIOXIDE 26 mmol/L (21-32); CHLORIDE 107 mmol/L (98-107); CREATININE 0.9 mg/dL (0.7-1.3); GLUCOSE 146 mg/dL (70-99); MAGNESIUM 1.8 mg/dL (1.8-2.4); POTASSIUM 4.6 mmol/L (3.5-5.1); SODIUM 139 mmol/L (136-145)
[2018-02-12 06:04] LABS: POC GLUCOSE 128 mg/dL (70-99)
[2018-02-12] MEDS: MAGNESIUM SULFATE 1GM 100 ML IV (06:33)
[2018-02-12 07:03] LABS: POC GLUCOSE 143 mg/dL (70-99)
[2018-02-12 07:06] LABS: FIO2 ISTAT 100; TOSPEC VEN; VEN BASE EXCESS ISTAT 5 mmol/L (0-3); VEN GLUC ISTAT 137 mg/dL (70-99); VEN HCO3 ISTAT 30 mmol/L (24-28); VEN HCT ISTAT 29 % (37-52); VEN HGB ISTAT 9.9 g/dL (14-18); VEN ION CA ISTAT 1.05 mmol/L (1.13-1.32); VEN K ISTAT 3.1 mmol/L (3.5-5.0); VEN NA ISTAT 140 mmol/L (135-145); VEN O2 ISTAT 94 mmHg (20-40); VEN PCO2 ISTAT 47 mmHg (41-51); VEN PH ISTAT 7.41 (7.32-7.42); VEN SO2 ISTAT 97 %; VEN TCO2 ISTAT 31 mmol/L (21-32)
[2018-02-12] MEDS: IPRATROPIUM BROMIDE 0.5 MG/2.5 ML NEBU. NEB ×4 (07:42→20:24)
[2018-02-12] MEDS: BUDESONIDE 0.5 MG/2 ML NEBU. NEB ×2 (07:42→20:25)
[2018-02-12 08:19] LABS: POC GLUCOSE 145 mg/dL (70-99)
[2018-02-12] MEDS: cefTRIAXone IV Push 1 GM VIAL. IVP (08:31)
[2018-02-12] MEDS: oxyCODONE/APAP 5/325 1 TAB TABLET PO ×3 (08:32→23:03)
[2018-02-12] MEDS: METOPROLOL TART IMMED RELEASE 25 MG TABLET. PO ×3 (08:33→17:59)
[2018-02-12] MEDS: ASPIRIN ENTERIC COATED 325 MG TABLET.DR. PO (08:33)
[2018-02-12] MEDS: SENNOSIDES/DOCUSATE 8.6/50MG TABLET. PO ×2 (08:33→20:27)
[2018-02-12] MEDS: PANTOPRAZOLE 40 MG TABLET.DR. PO (08:33)
[2018-02-12] MEDS ORDERED: POLYETHYLENE GLYCOL 3350 17 GM PACKET. PO (09:00)
[2018-02-12 09:34] LABS: POC GLUCOSE 154 mg/dL (70-99)
[2018-02-12] MEDS: FUROSEMIDE 40 MG/4 ML VIAL. IVP (12:53)
[2018-02-12] MEDS: INSULIN LISPRO 300 UNITS/3 ML INSULN.PEN. SQ (17:30)
[2018-02-12] MEDS ORDERED: DEXTROSE 50% 25 GM / 50ML DISP.SYRIN. IV (17:45)
[2018-02-12 18:46] LABS: POC GLUCOSE 122 mg/dL (70-99)
[2018-02-12] MEDS: ATORVASTATIN CALCIUM 40 MG TABLET. PO (20:26)
[2018-02-13] MEDS: METOPROLOL TART IMMED RELEASE 25 MG TABLET. PO ×4 (02:06→18:07)
[2018-02-13] MEDS: oxyCODONE/APAP 5/325 1 TAB TABLET PO ×2 (06:23→21:13)
[2018-02-13 06:48] LABS: ANION GAP 3 (6-14); BLOOD UREA NITROGEN 22 mg/dL (8-26); CALCIUM 8.1 mg/dL (8.5-10.1); CARBON DIOXIDE 29 mmol/L (21-32); CHLORIDE 102 mmol/L (98-107); CREATININE 1.2 mg/dL (0.7-1.3); GFR 58.9; GLUCOSE 127 mg/dL (70-99); MAGNESIUM 2.1 mg/dL (1.8-2.4); POTASSIUM 4.6 mmol/L (3.5-5.1); SODIUM 134 mmol/L (136-145)
[2018-02-13] MEDS: INSULIN LISPRO 300 UNITS/3 ML INSULN.PEN. SQ ×3 (08:00→17:00)
[2018-02-13] MEDS: IPRATROPIUM BROMIDE 0.5 MG/2.5 ML NEBU. NEB ×4 (08:03→19:48)
[2018-02-13] MEDS: BUDESONIDE 0.5 MG/2 ML NEBU. NEB ×2 (08:03→19:48)
[2018-02-13] MEDS: PANTOPRAZOLE 40 MG TABLET.DR. PO (09:08)
[2018-02-13] MEDS: ASPIRIN ENTERIC COATED 325 MG TABLET.DR. PO (09:08)
[2018-02-13] MEDS: MAGNESIUM SULFATE 1GM 100 ML IV (09:08)
[2018-02-13] MEDS: SENNOSIDES/DOCUSATE 8.6/50MG TABLET. PO ×2 (09:08→21:13)
[2018-02-13] MEDS: cefTRIAXone IV Push 1 GM VIAL. IVP (09:09)
[2018-02-13 09:21] LABS: POC GLUCOSE 132 mg/dL (70-99)
[2018-02-13] MEDS: FUROSEMIDE 20 MG/2 ML VIAL. IVP (11:44)
[2018-02-13 11:48] LABS: POC GLUCOSE 139 mg/dL (70-99)
[2018-02-13] MEDS ORDERED: NOREPINEPHRIN 8MG/250ML PREMIX 250 ML IV (13:15)
[2018-02-13] MEDS: ALBUMIN HUMAN 5% 500 ML IV (13:30)
[2018-02-13] MEDS: IV RINGERS,LACTATED 1000ML 1,000 ML IV (13:30)
[2018-02-13 13:45] LABS: HEMATOCRIT 28.9 % (39.0-53.0); HEMOGLOBIN 9.4 g/dL (13.0-17.5); MEAN CORPUSCULAR HEMOGLOBIN 27 pg (25-35); MEAN CORPUSCULAR HGB CONC 33 g/dL (31-37); MEAN CORPUSCULAR VOLUME 82 fL (79-100); PLATELET COUNT 298 x10^3/uL (140-400); RED BLOOD COUNT 3.52 x10^6/uL (4.30-5.70); RED CELL DISTRIBUTION WIDTH 17.9 % (11.5-14.5); WHITE BLOOD COUNT 16.2 x10^3/uL (4.0-11.0)
[2018-02-13] MEDS: FUROSEMIDE 40 MG/4 ML VIAL. IVP (15:53)
[2018-02-13] MEDS: DIGOXIN IV 500 MCG/2 ML AMPUL. IV ×2 (17:16→17:47)
[2018-02-13 17:19] LABS: POC GLUCOSE 148 mg/dL (70-99)
[2018-02-13 17:52] LABS: POTASSIUM 4.6 mmol/L (3.5-5.1)
[2018-02-13 17:54] LABS: MAGNESIUM 2.2 mg/dL (1.8-2.4)
[2018-02-13] MEDS: AMIODARONE 900 MG in IV DEXTROSE 5% 500 ML IV (18:43)
[2018-02-13] MEDS: AMIODARONE 150 MG in IV DEXTROSE 5% 100ML 100 ML IV (18:43)
[2018-02-13] MEDS ORDERED: AMIODARONE 900 MG in IV DEXTROSE 5% 500 ML IV (18:45)
[2018-02-13] MEDS: ATORVASTATIN CALCIUM 40 MG TABLET. PO (21:13)
[2018-02-14 05:46] LABS: ADD MAN DIFF? NO
[2018-02-14 05:49] LABS: BASO # 0.1 x10^3/uL (0.0-0.2); BASO % 1 % (0-3); EOS # 0.1 x10^3/uL (0.0-0.7); EOS % 1 % (0-3); HEMATOCRIT 28.5 % (39.0-53.0); HEMOGLOBIN 9.4 g/dL (13.0-17.5); LYMPH # 1.3 x10^3/uL (1.0-4.8); LYMPH % 10 % (24-48); MEAN CORPUSCULAR HEMOGLOBIN 27 pg (25-35); MEAN CORPUSCULAR HGB CONC 33 g/dL (31-37); MEAN CORPUSCULAR VOLUME 82 fL (79-100); MONO # 0.9 x10^3/uL (0.0-1.1); MONO % 7 % (0-9); NEUT # 10.5 x10^3uL (1.8-7.7); NEUT % 82 % (31-73); PLATELET COUNT 300 x10^3/uL (140-400); RED CELL DISTRIBUTION WIDTH 17.6 % (11.5-14.5); WHITE BLOOD COUNT 12.8 x10^3/uL (4.0-11.0)
[2018-02-14 06:10] LABS: ANION GAP 5 (6-14); BLOOD UREA NITROGEN 24 mg/dL (8-26); CALCIUM 8.1 mg/dL (8.5-10.1); CARBON DIOXIDE 28 mmol/L (21-32); CHLORIDE 101 mmol/L (98-107); CREATININE 1.2 mg/dL (0.7-1.3); GFR 58.9; GLUCOSE 130 mg/dL (70-99); MAGNESIUM 2.2 mg/dL (1.8-2.4); POTASSIUM 4.5 mmol/L (3.5-5.1); SODIUM 134 mmol/L (136-145)
[2018-02-14] MEDS: INSULIN LISPRO 300 UNITS/3 ML INSULN.PEN. SQ ×3 (08:00→17:31)
[2018-02-14] MEDS: ASPIRIN ENTERIC COATED 325 MG TABLET.DR. PO (08:18)
[2018-02-14] MEDS: SENNOSIDES/DOCUSATE 8.6/50MG TABLET. PO ×2 (08:18→21:00)
[2018-02-14] MEDS: PANTOPRAZOLE 40 MG TABLET.DR. PO (08:18)
[2018-02-14] MEDS: cefTRIAXone IV Push 1 GM VIAL. IVP (08:20)
[2018-02-14] MEDS: oxyCODONE/APAP 5/325 1 TAB TABLET PO ×2 (08:27→21:27)
[2018-02-14 08:28] LABS: POC GLUCOSE 118 mg/dL (70-99)
[2018-02-14] MEDS: BUDESONIDE 0.5 MG/2 ML NEBU. NEB ×2 (09:45→19:15)
[2018-02-14] MEDS: IPRATROPIUM BROMIDE 0.5 MG/2.5 ML NEBU. NEB ×4 (09:45→19:15)
[2018-02-14] MEDS: AMIODARONE HCL 200 MG TABLET. PO ×2 (09:55→21:25)
[2018-02-14] MEDS: METOPROLOL TART IMMED RELEASE 25 MG TABLET. PO ×3 (12:11→21:24)
[2018-02-14 12:19] LABS: POC GLUCOSE 130 mg/dL (70-99)
[2018-02-14] MEDS: IV RINGERS,LACTATED 1000ML 1,000 ML IV (15:49)
[2018-02-14] MEDS: FUROSEMIDE 40 MG/4 ML VIAL. IVP (16:09)
[2018-02-14 17:29] LABS: POC GLUCOSE 161 mg/dL (70-99)
[2018-02-14 21:15] LABS: POC GLUCOSE 145 mg/dL (70-99)
[2018-02-14] MEDS: ATORVASTATIN CALCIUM 40 MG TABLET. PO (21:25)
[2018-02-15] MEDS: BUDESONIDE 0.5 MG/2 ML NEBU. NEB ×2 (06:09→19:38)
[2018-02-15] MEDS: IPRATROPIUM BROMIDE 0.5 MG/2.5 ML NEBU. NEB ×4 (06:09→19:37)
[2018-02-15 07:08] LABS: POC GLUCOSE 116 mg/dL (70-99)
[2018-02-15] MEDS: INSULIN LISPRO 300 UNITS/3 ML INSULN.PEN. SQ ×3 (07:20→17:00)
[2018-02-15] MEDS: SENNOSIDES/DOCUSATE 8.6/50MG TABLET. PO ×2 (07:21→21:05)
[2018-02-15] MEDS: PANTOPRAZOLE 40 MG TABLET.DR. PO ×2 (08:12→17:58)
[2018-02-15] MEDS: ASPIRIN ENTERIC COATED 325 MG TABLET.DR. PO (08:13)
[2018-02-15] MEDS: AMIODARONE HCL 200 MG TABLET. PO ×2 (08:13→21:05)
[2018-02-15] MEDS: METOPROLOL TART IMMED RELEASE 25 MG TABLET. PO ×2 (08:13→21:06)
[2018-02-15] MEDS: FUROSEMIDE 40 MG/4 ML VIAL. IVP (08:13)
[2018-02-15] MEDS: cefTRIAXone IV Push 1 GM VIAL. IVP (08:14)
[2018-02-15] MEDS: oxyCODONE/APAP 5/325 1 TAB TABLET PO (10:11)
[2018-02-15 12:04] LABS: POC GLUCOSE 123 mg/dL (70-99)
[2018-02-15] MEDS: IV RINGERS,LACTATED 1000ML 1,000 ML IV (15:49)
[2018-02-15 17:45] LABS: POC GLUCOSE 96 mg/dL (70-99)
[2018-02-15] MEDS: ATORVASTATIN CALCIUM 40 MG TABLET. PO (21:05)
[2018-02-15 21:46] LABS: POC GLUCOSE 139 mg/dL (70-99)
[2018-02-16 07:22] LABS: POC GLUCOSE 150 mg/dL (70-99)
[2018-02-16] MEDS: INSULIN LISPRO 300 UNITS/3 ML INSULN.PEN. SQ ×3 (08:00→17:00)
[2018-02-16] MEDS: IPRATROPIUM BROMIDE 0.5 MG/2.5 ML NEBU. NEB ×4 (08:20→21:16)
[2018-02-16] MEDS: BUDESONIDE 0.5 MG/2 ML NEBU. NEB ×2 (08:20→21:16)
[2018-02-16] MEDS: ALBUTEROL SULFATE 2.5 MG/3 ML NEBU. NEB (08:30)
[2018-02-16] MEDS: PANTOPRAZOLE 40 MG TABLET.DR. PO ×2 (08:43→18:34)
[2018-02-16] MEDS: SENNOSIDES/DOCUSATE 8.6/50MG TABLET. PO ×2 (08:44→21:26)
[2018-02-16] MEDS: AMIODARONE HCL 200 MG TABLET. PO ×2 (08:44→21:27)
[2018-02-16] MEDS: METOPROLOL TART IMMED RELEASE 25 MG TABLET. PO ×2 (08:44→21:26)
[2018-02-16] MEDS: ASPIRIN ENTERIC COATED 325 MG TABLET.DR. PO (08:44)
[2018-02-16] MEDS: FUROSEMIDE 40 MG/4 ML VIAL. IVP (08:45)
[2018-02-16] MEDS: ACETAMINOPHEN 325 MG TABLET. PO (08:48)
[2018-02-16] MEDS: cefTRIAXone IV Push 1 GM VIAL. IVP (08:50)
[2018-02-16 08:59] LABS: ANION GAP 5 (6-14); BLOOD UREA NITROGEN 15 mg/dL (8-26); CALCIUM 8.1 mg/dL (8.5-10.1); CARBON DIOXIDE 33 mmol/L (21-32); CHLORIDE 100 mmol/L (98-107); CREATININE 0.8 mg/dL (0.7-1.3); GLUCOSE 117 mg/dL (70-99); POTASSIUM 4.8 mmol/L (3.5-5.1); SODIUM 138 mmol/L (136-145)
[2018-02-16 09:11] LABS: HEMATOCRIT 33.8 % (39.0-53.0); HEMOGLOBIN 10.9 g/dL (13.0-17.5); MEAN CORPUSCULAR HEMOGLOBIN 27 pg (25-35); MEAN CORPUSCULAR HGB CONC 32 g/dL (31-37); MEAN CORPUSCULAR VOLUME 82 fL (79-100); PLATELET COUNT 439 x10^3/uL (140-400); RED BLOOD COUNT 4.11 x10^6/uL (4.30-5.70); RED CELL DISTRIBUTION WIDTH 17.7 % (11.5-14.5); WHITE BLOOD COUNT 8.2 x10^3/uL (4.0-11.0)
[2018-02-16 11:03] LABS: POC GLUCOSE 134 mg/dL (70-99)
[2018-02-16 16:37] LABS: POC GLUCOSE 162 mg/dL (70-99)
[2018-02-16] MEDS: ATORVASTATIN CALCIUM 40 MG TABLET. PO (21:26)
[2018-02-17 07:18] LABS: POC GLUCOSE 123 mg/dL (70-99)
[2018-02-17] MEDS: IPRATROPIUM BROMIDE 0.5 MG/2.5 ML NEBU. NEB ×3 (07:38→16:03)
[2018-02-17] MEDS: BUDESONIDE 0.5 MG/2 ML NEBU. NEB (07:38)
[2018-02-17] MEDS: INSULIN LISPRO 300 UNITS/3 ML INSULN.PEN. SQ ×3 (08:00→17:00)
[2018-02-17] MEDS: METOPROLOL TART IMMED RELEASE 25 MG TABLET. PO (08:34)
[2018-02-17] MEDS: SENNOSIDES/DOCUSATE 8.6/50MG TABLET. PO (08:35)
[2018-02-17] MEDS: AMIODARONE HCL 200 MG TABLET. PO (08:35)
[2018-02-17] MEDS: ASPIRIN ENTERIC COATED 325 MG TABLET.DR. PO (08:35)
[2018-02-17] MEDS: FUROSEMIDE 40 MG/4 ML VIAL. IVP (08:35)
[2018-02-17] MEDS: PANTOPRAZOLE 40 MG TABLET.DR. PO ×2 (08:35→17:44)
[2018-02-17] MEDS: cefTRIAXone IV Push 1 GM VIAL. IVP (08:52)
[2018-02-17 11:07] LABS: POC GLUCOSE 150 mg/dL (70-99)
[2018-02-17] MEDS: FUROSEMIDE 40 MG TABLET. PO (15:00)
[2018-02-17 16:39] LABS: POC GLUCOSE 171 mg/dL (70-99)
[2018-02-17] MEDS ORDERED: METOPROLOL TART IMMED RELEASE 50 MG TABLET. PO (21:00)
[2018-02-18] MEDS ORDERED: ASPIRIN ENTERIC COATED 81 MG TABLET.DR. PO (08:00)
[2018-02-18] MEDS ORDERED: AMIODARONE HCL 200 MG TABLET. PO (09:00)
== END 2018-02-17 19:00 | DRG 219 ==
LOC: 1 WEST ICU 05:54 → 2 SOUTH 02-14 16:24
PROVIDERS: Internal Medicine
PROC: 02RX0JZ Replacement of Thoracic Aorta, Ascending/Arch with Synthetic Substitute, Open Approach (ICD-10-PCS; principal; 2018-02-11 07:30)
PROC: 5A1221Z Performance of Cardiac Output, Continuous (ICD-10-PCS; 2018-02-11 07:30)
PROC: 30233L1 Transfusion of Nonautologous Fresh Plasma into Peripheral Vein, Percutaneous Approach (ICD-10-PCS; 2018-02-11 07:54)
PROC: 30233R1 Transfusion of Nonautologous Platelets into Peripheral Vein, Percutaneous Approach (ICD-10-PCS; 2018-02-11 07:54)
PROC: 30233K1 Transfusion of Nonautologous Frozen Plasma into Peripheral Vein, Percutaneous Approach (ICD-10-PCS; 2018-02-11 07:54)
DX: I71.01 Dissection of thoracic aorta (principal); J96.01 Acute respiratory failure with hypoxia; I50.43 Acute on chronic combined systolic (congestive) and diastolic (congestive) heart failure; I49.01 Ventricular fibrillation; I42.9 Cardiomyopathy, unspecified; J44.0 Chronic obstructive pulmonary disease with (acute) lower respiratory infection; J44.1 Chronic obstructive pulmonary disease with (acute) exacerbation; J98.11 Atelectasis; I47.1 Supraventricular tachycardia; I97.89 Other postprocedural complications and disorders of the circulatory system, not elsewhere classified; I71.2 Thoracic aortic aneurysm, without rupture; I70.0 Atherosclerosis of aorta; I25.10 Atherosclerotic heart disease of native coronary artery without angina pectoris; I11.0 Hypertensive heart disease with heart failure; E78.5 Hyperlipidemia, unspecified; Y83.1 Surgical operation with implant of artificial internal device as the cause of abnormal reaction of the patient, or of later complication, without mention of misadventure at the time of the procedure; Y92.89 Other specified places as the place of occurrence of the external cause; E11.51 Type 2 diabetes mellitus with diabetic peripheral angiopathy without gangrene; J20.9 Acute bronchitis, unspecified; D64.9 Anemia, unspecified; I49.5 Sick sinus syndrome; I48.0 Paroxysmal atrial fibrillation; Z83.3 Family history of diabetes mellitus; Z87.891 Personal history of nicotine dependence
CPT/HCPCS: 36415; 36600; 71045; 71275; 75635; 76604; 80048; 82803; 82805; 82962; 83735; 84132; 85007; 85014; 85025; 85027; 85347; 85384; 85610; 85730; 86850; 86900; 86901; 86920; 86927; 87641; 88304; 93005; 93306; 93308; 93312; 93325; 93880; 94002; 94640; 94660; 94760; 97110-GO; 97116-GP; 97162-GP; 97167-GO; 97530-GP; 97535-GO; 99285; 99285-25; C1729; C1768; C1781; J0282; J0690; J0696; J1160; J1644; J1815; J1940; J2001; J2250; J2270; J2440; J2704; J3370; J3475; J3480; J3490; J7030; J7040; J7050; J7120; J7626; J7644; P9017; P9035; P9041; P9045; P9046; Q9967; S0028

== ENCOUNTER → 2018-02-27 | Outpatient (CLI) | payer MEDICARE | END | disposition home or self-care (01) | LOC: RAD 14:21 | DX: Z48.813 Encounter for surgical aftercare following surgery on the respiratory system (principal); I11.9 Hypertensive heart disease without heart failure; I50.9 Heart failure, unspecified; E11.9 Type 2 diabetes mellitus without complications; E78.5 Hyperlipidemia, unspecified; E78.00 Pure hypercholesterolemia, unspecified; J44.1 Chronic obstructive pulmonary disease with (acute) exacerbation; Z98.890 Other specified postprocedural states | CPT/HCPCS: 71046 ==

== ENCOUNTER → 2018-03-12 | Outpatient (CLI) | payer MEDICARE ==
[2018-03-12 13:53] LABS: ANION GAP 8 (6-14); BLOOD UREA NITROGEN 7 mg/dL (8-26); CALCIUM 8.1 mg/dL (8.5-10.1); CARBON DIOXIDE 31 mmol/L (21-32); CHLORIDE 99 mmol/L (98-107); CREATININE 1.1 mg/dL (0.7-1.3); GFR 65.1; GLUCOSE 119 mg/dL (70-99); POTASSIUM 3.8 mmol/L (3.5-5.1); SODIUM 138 mmol/L (136-145)
== END | disposition home or self-care (01) ==
LOC: SPEC 13:22
DX: I11.9 Hypertensive heart disease without heart failure (principal); E11.9 Type 2 diabetes mellitus without complications; E78.5 Hyperlipidemia, unspecified; E78.00 Pure hypercholesterolemia, unspecified; J44.1 Chronic obstructive pulmonary disease with (acute) exacerbation
CPT/HCPCS: 36415; 80048

== ENCOUNTER 2018-03-15 13:49 | Inpatient (IN) | payer MEDICARE ==
[2018-03-15] MEDS ORDERED: ACETAMINOPHEN 325 MG TABLET. PO (15:15)
[2018-03-15 16:09] LABS: CKMB MASS < 0.5 ng/mL (0.0-3.6); CREATINE KINASE 26 U/L (39-308)
[2018-03-15 16:18] LABS: TROPONINI 0.072 ng/mL (0.000-0.055)
[2018-03-15] MEDS: RIVAROXABAN 10 MG TABLET. PO (16:53)
[2018-03-15] MEDS: FUROSEMIDE 40 MG TABLET. PO (16:53)
[2018-03-15] MEDS: METOPROLOL TART IMMED RELEASE 50 MG TABLET. PO (21:23)
[2018-03-15] MEDS: SENNOSIDES/DOCUSATE 8.6/50MG TABLET. PO (21:24)
[2018-03-15] MEDS: ATORVASTATIN CALCIUM 40 MG TABLET. PO (21:24)
[2018-03-15 22:30] LABS: TROPONINI 0.087 ng/mL (0.000-0.055)
[2018-03-15 22:45] LABS: CKMB MASS < 0.5 ng/mL (0.0-3.6); CREATINE KINASE 21 U/L (39-308)
[2018-03-16 06:05] LABS: ADD MAN DIFF? NO
[2018-03-16 06:11] LABS: BASO % 1 % (0-3); EOS # 0.2 x10^3/uL (0.0-0.7); EOS % 3 % (0-3); HEMOGLOBIN 7.9 g/dL (13.0-17.5); LYMPH # 1.3 x10^3/uL (1.0-4.8); LYMPH % 27 % (24-48); MEAN CORPUSCULAR HEMOGLOBIN 25 pg (25-35); MEAN CORPUSCULAR HGB CONC 33 g/dL (31-37); MEAN CORPUSCULAR VOLUME 77 fL (79-100); MONO # 0.4 x10^3/uL (0.0-1.1); MONO % 9 % (0-9); NEUT # 2.8 x10^3uL (1.8-7.7); NEUT % 60 % (31-73); PLATELET COUNT 372 x10^3/uL (140-400); RED BLOOD COUNT 3.12 x10^6/uL (4.30-5.70); RED CELL DISTRIBUTION WIDTH 16.7 % (11.5-14.5); WHITE BLOOD COUNT 4.7 x10^3/uL (4.0-11.0)
[2018-03-16 06:36] LABS: ALBUMIN 2.6 g/dL (3.4-5.0); ALBUMIN/GLOBULIN RATIO 0.5 (1.0-1.7); ALK PHOS 60 U/L (46-116); ALT (SGPT) 14 U/L (16-63); ANION GAP 4 (6-14); AST (SGOT) 18 U/L (15-37); BLOOD UREA NITROGEN 8 mg/dL (8-26); BUN/CREATININE RATIO 8 (6-20); CALCIUM 8.5 mg/dL (8.5-10.1); CARBON DIOXIDE 33 mmol/L (21-32); CHLORIDE 103 mmol/L (98-107); CHOLESTEROL 88 mg/dL (0-200); GFR 72.6; GLUCOSE 101 mg/dL (70-99); HDLC 46 mg/dL (40-60); LDLC 32 mg/dL (0-100); NON-HDL CHOLESTEROL 42 mg/dL (0-129); POTASSIUM 3.3 mmol/L (3.5-5.1); SODIUM 140 mmol/L (136-145); TOTAL BILIRUBIN 0.9 mg/dL (0.2-1.0); TOTAL PROTEIN 7.6 g/dL (6.4-8.2); TRIGLYCERIDES 51 mg/dL (0-150); VLDLC 10 mg/dL (0-40)
[2018-03-16 06:40] LABS: CHOLESTEROL/HDL RATIO 1.9
[2018-03-16] MEDS: POTASSIUM CHLORIDE 20 MEQ TABLET.ER. PO ×3 (08:00→12:50)
[2018-03-16] MEDS: PANTOPRAZOLE 40 MG TABLET.DR. PO (08:54)
[2018-03-16] MEDS: CYANOCOBALAMIN (VITAMIN B-12) 1,000 MCG TABLET. PO (08:55)
[2018-03-16] MEDS: METOPROLOL TART IMMED RELEASE 50 MG TABLET. PO (08:55)
[2018-03-16] MEDS: SENNOSIDES/DOCUSATE 8.6/50MG TABLET. PO (08:55)
[2018-03-16] MEDS: FOLIC ACID 1 MG TABLET. PO (08:56)
[2018-03-16] MEDS: FUROSEMIDE 40 MG TABLET. PO ×2 (08:56→12:50)
[2018-03-16] MEDS: AMIODARONE HCL 200 MG TABLET. PO (08:56)
[2018-03-16] MEDS: RIVAROXABAN 10 MG TABLET. PO (16:16)
[2018-03-16 20:15] LABS: MRSA BY PCR Negative (Negative)
[2018-03-17] MEDS ORDERED: FERROUS SULFATE 325 MG TABLET. PO (16:00)
== END 2018-03-16 18:58 | disposition home health service (06) | DRG 313 ==
LOC: 1 WEST ICU 13:49
PROVIDERS: Internal Medicine
DX: R07.89 Other chest pain (principal); I50.42 Chronic combined systolic (congestive) and diastolic (congestive) heart failure; I11.0 Hypertensive heart disease with heart failure; E11.51 Type 2 diabetes mellitus with diabetic peripheral angiopathy without gangrene; E78.5 Hyperlipidemia, unspecified; I25.10 Atherosclerotic heart disease of native coronary artery without angina pectoris; M19.90 Unspecified osteoarthritis, unspecified site; E87.6 Hypokalemia; I48.91 Unspecified atrial fibrillation; D50.9 Iron deficiency anemia, unspecified; Z79.01 Long term (current) use of anticoagulants; Z79.899 Other long term (current) drug therapy
CPT/HCPCS: 36415; 80048; 80053; 80061; 82553; 84484; 85025; 87641

== ENCOUNTER 2021-06-14 15:13 | Inpatient (IN) | payer MEDICARE, MEDICAID ==
[~2021-06-14] VITALS: Ht 180.3 cm; Wt 82.0 kg
[~2021-06-14 15:13] MED LIST: ACET325T9 PO; ALBU2.5V8 NEB; AMIO200T53 PO; AMIO400T5 PO; APIX5TAB PO; ASPI-886 PO; ASPI325T11 PO; ATOR10TA60 PO; ATOR40TA59 PO; BUDE0.5A NEB; BUDE10.22 IH; CARV3.1210 PO; CYAN100072 PO; CYCL10TA19 PO; DOCU-148 PO; DOCU100C28 PO; Diclofenac Sodium TP; FERR-36 PO; FERR240T2 PO; FERR325T14 PO; FOLI1TAB16 PO; FURO-69 PO; FURO10VI IVP; FURO40TA4 PO; INSU100V35 SQ; IPRA0.2S5 NEB; LEVO5TAB2 PO; LISI10TA16 PO; LOSA-73 PO; METO-239 PO; METO25TA4 PO; METO50TA4 PO; METO50TA6 PO; NITR0.4T22 SL; OMEP20TA63 PO; PANT20TA2 PO; PANT40TA77 PO; POLY17PO52 PO; POTA-121 PO; POTA20TA4 PO; Pantoprazole PO; RIVA10TA PO; SACU1TAB PO; SENN-37 PO; SPIR25TA PO
[2021-06-14 16:50] LABS: BASO % 0 % (0-3); EOS % 0 % (0-3); HEMATOCRIT 33.9 % (39.0-53.0); HEMOGLOBIN 10.3 g/dL (13.0-17.5); LYMPH # 0.2 x10^3/uL (1.0-4.8); LYMPH % 1 % (24-48); MEAN CORPUSCULAR HEMOGLOBIN 20 pg (25-35); MEAN CORPUSCULAR HGB CONC 31 g/dL (31-37); MEAN CORPUSCULAR VOLUME 66 fL (79-100); MONO # 0.1 x10^3/uL (0.0-1.1); MONO % 0 % (0-9); NEUT # 26.6 x10^3/uL (1.8-7.7); NEUT % 99 % (31-73); PLATELET COUNT 285 x10^3/uL (140-400); RED BLOOD COUNT 5.11 x10^6/uL (4.30-5.70); WHITE BLOOD COUNT 26.9 x10^3/uL (4.0-11.0)
[2021-06-14 17:03] LABS: CALCIUM 8.3 mg/dL (8.5-10.1); CREATININE 2.3 mg/dL (0.7-1.3); GFR 33.4; POTASSIUM 3.8 mmol/L (3.5-5.1)
[2021-06-14 17:08] LABS: ALBUMIN/GLOBULIN RATIO 0.2 (1.0-1.7); MAGNESIUM 1.7 mg/dL (1.8-2.4); TOTAL BILIRUBIN 1.8 mg/dL (0.2-1.0); TOTAL PROTEIN 10.3 g/dL (6.4-8.2)
--- NOTE | 2021-06-14 17:09 | EKG ---
[facility] [address] [place] [address] Test Date: 2021-06-14 Test Time: 16:22:34 Pat Name: CECILIA PITT Department: Room: Gender: M Cigar Sorter: : 1940 Requested By: ANA WOLFE Order Number: [id number] Reading MD: Vimal Jennings MD Measurements Intervals [place] Rate: 147 P: ND: QRS: 267 QRSD: 134 T: 73 QT: 316 QTc: 502 Interpretive Statements ATRIAL FIBRILLATION WITH RVR LAFB RBBB RVH Electronically Signed On 06-17-2021 15:26:37 CDT by Vimal Jennings MD
[2021-06-14 17:11] LABS: % SEGS 90 % (35-66); PLT ESTIMATE ADEQUATE (ADEQUATE)
[2021-06-14 17:12] LABS: % BANDS 7 % (0-9); % LYMPHS 2 % (24-48); % MONOS 1 % (0-10); TOXIC VACUOLATION PRESENT
[2021-06-14 17:13] LABS: ANISOCYTOSIS MOD; HYPOCHROMIA MARKED; MICROCYTOSIS MARKED; POIKILOCYTOSIS SLIGHT
--- NOTE | 2021-06-14 17:38 | RAD ---
Site ID: [id number] EXAMINATION: XR CHEST 1V. HISTORY: 80 years Male Reason: dyspnea / COMPARISON: April 02, 2021. Findings: The heart is enlarged. There is elevation of the left hemidiaphragm with the left basilar i nfiltrate and atelectasis, increased compared to the previous exam. The right lung demonstrate no sig nificant consolidation. There is no effusion or pneumothorax. The mediastinum and traci appear unremarkable. Sternotomy wires are seen. Impression: Left basilar infiltrate and atelectasis. Electronically signed by: Momo Staley MD (06/14/2021 5:35 PM) [id number]
--- NOTE | 2021-06-14 17:45 | PHYS DOC ---
Past Medical History Past Medical History: Anemia, Asthma, CAD, CHF, Diabetes-Type II, High Cholesterol, Hypertension, Vascular Disease Additional Past Medical Histor: EF 30%, Past Surgical History: Other Additional Past Surgical Histo: HERNIA, aortic dissection repair Smoking Status: Former Smoker Alcohol Use: None Drug Use: None General Adult EDM: Chief Complaint: COUGH HPI: HPI: Patient is a 80 year old male who is here with about 1 week of cough with purulent sputum, as well as progressive dyspnea at rest and dyspnea on exertion. He also reports lower extremity swelling, increased from baseline. He has a history of congestive heart failure and feels this is similar to previous exacerbations. He denies fevers, though he has had chills. He denies hemoptysis. He does report some chest pressure, which is also been constant, worse with exertion. He denies dizziness, diaphoresis, nausea vomiting, abdominal pain, syncope. He denies any recent travel, he denies sick contacts. He lives at home with family. Denies recent hospitalization or surgery. He denies hospitalization in the last 90 days. He has been vaccinated against Covid. Review of Systems: Review of Systems: Constitutional: Denies fever, has had chills Eyes: Denies change in visual acuity. [] HENT: Reports nasal congestion. Respiratory: Reports cough with purulent sputum, dyspnea, dyspnea on exertion Cardiovascular: Reports chest tightness, reports lower extremity edema GI: Denies abdominal pain, nausea, vomiting, bloody stools or diarrhea. [] : Denies dysuria. [] Musculoskeletal: Denies back pain or joint pain. [] Integument: Denies rash. [] Neurologic: Denies headache, focal weakness or sensory changes. [] Endocrine: Denies polyuria or polydipsia. [] Lymphatic: Denies swollen glands. [] Psychiatric: Denies depression or anxiety. [] Heart Score: C/O Chest Pain: Yes HEART Score for Chest Pain: HEART Score for Chest Pain Response (Comments) Value History Moderately Suspicious 1 ECG Nonspecific Repolarizatio 1 Age > 65 2 Risk Factors >3 Risk Factors or Hx CAD 2 Total 6 Risk Factors: Risk Factors: DM, Current or recent (<one month) smoker, HTN, HLP, family history of CAD, obesity. Risk Scores: Score 0 - 3: 2.5% MACE over next 6 weeks - Discharge Home Score 4 - 6: 20.3% MACE over next 6 weeks - Admit for Clinical Observation Score 7 - 10: 72.7% MACE over next 6 weeks - Early Invasive Strategies Current Medications: Current Medications Medications (Trade) Dose Ordered Sig/Nathaly Start Time Stop Time Status Last Admin Dose Admin Diltiazem HCl (Cardizem Iv Push) 10 mg 1X ONCE 06/14/21 16:45 06/14/21 16:46 DC 06/14/21 16:45 10 MG Allergies: Allergies: Allergies Coded Allergies Type Severity Reaction Last Updated Verified No Known Drug Allergies 06/14/21 No Physical Exam: PE: Constitutional: Well developed, well nourished, he is in mild respiratory distress initially, he is mildly acutely ill-appearing, and chronically ill- appearing. He is not toxic. HENT: Normocephalic, atraumatic, mucous membranes are moist. Eyes: Sclera are clear and nonicteric no discharge. [] Neck: Normal range of motion, no tenderness, supple, no stridor. [] Cardiovascular: Irregular, tachycardic, +2 ADL and posterior trivial pulses bilaterally Lungs & Thorax: Moderate tachypnea, diffuse coarse rhonchi, bibasilar rales, worse on the left base, no wheezing, no stridor, speaks in full and clear sente nces. Abdomen: Bowel sounds normal, soft, no tenderness, no masses, no pulsatile masses. [] Skin: Warm, dry, no erythema, no rash. [] Back: No tenderness, no CVA tenderness. [] Extremities: No tenderness, no cyanosis, no clubbing, ROM intact, no edema. [] Neurologic: Alert and oriented X 3, normal motor function, normal sensory function, no focal deficits noted. [] Psychologic: Affect normal, judgement normal, mood normal. He is pleasant and cooperative. Current Patient Data: Labs: Laboratory Tests Test 06/14/21 16:25 White Blood Count 26.9 x10^3/uL (4.0-11.0) H Red Blood Count 5.11 x10^6/uL (4.30-5.70) Hemoglobin 10.3 g/dL (13.0-17.5) L Hematocrit 33.9 % (39.0-53.0) L Mean Corpuscular Volume 66 fL (79-100) L Mean Corpuscular Hemoglobin 20 pg (25-35) L Mean Corpuscular Hemoglobin Concent 31 g/dL (31-37) Red Cell Distribution Width 22.0 % (11.5-14.5) H Platelet Count 285 x10^3/uL (140-400) Neutrophils (%) (Auto) 99 % (31-73) H Lymphocytes (%) (Auto) 1 % (24-48) L Monocytes (%) (Auto) 0 % (0-9) Eosinophils (%) (Auto) 0 % (0-3) Basophils (%) (Auto) 0 % (0-3) Neutrophils # (Auto) 26.6 x10^3/uL (1.8-7.7) H Lymphocytes # (Auto) 0.2 x10^3/uL (1.0-4.8) L Monocytes # (Auto) 0.1 x10^3/uL (0.0-1.1) Eosinophils # (Auto) 0.0 x10^3/uL (0.0-0.7) Basophils # (Auto) 0.0 x10^3/uL (0.0-0.2) Segmented Neutrophils % 90 % (35-66) H Band Neutrophils % 7 % (0-9) Lymphocytes % 2 % (24-48) L Monocytes % 1 % (0-10) Toxic Vacuolation Present Platelet Estimate Adequate (ADEQUATE) Hypochromasia Marked Poikilocytosis Slight Anisocytosis Mod Microcytosis Marked Sodium Level 127 mmol/L (136-145) L Potassium Level 3.8 mmol/L (3.5-5.1) Chloride Level 91 mmol/L (98-107) L Carbon Dioxide Level 19 mmol/L (21-32) L Anion Gap 17 (6-14) H Blood Urea Nitrogen 39 mg/dL (8-26) H Creatinine 2.3 mg/dL (0.7-1.3) H Estimated GFR (Cockcroft-Gault) 33.4 BUN/Creatinine Ratio 17 (6-20) Glucose Level 138 mg/dL (70-99) H Calcium Level 8.3 mg/dL (8.5-10.1) L Magnesium Level 1.7 mg/dL (1.8-2.4) L Total Bilirubin 1.8 mg/dL (0.2-1.0) H Aspartate Amino Transferase (AST) 32 U/L (15-37) Alanine Aminotransferase (ALT) 12 U/L (16-63) L Alkaline Phosphatase 55 U/L (46-116) Troponin I Quantitative 0.033 ng/mL (0.000-0.055) QC-Iut-C-Type Natriuretic Peptide 20634 pg/mL (0-449) H Total Protein 10.3 g/dL (6.4-8.2) H Albumin 2.0 g/dL (3.4-5.0) L Albumin/Globulin Ratio 0.2 (1.0-1.7) L Laboratory Tests 06/14/21 16:25 Laboratory Tests 06/14/21 16:25 Vital Signs: Vital Signs Date Time Temp Pulse Resp B/P (MAP) Pulse Ox O2 Delivery O2 Flow Rate FiO2 06/14/21 17:12 126 121/51 (74) 06/14/21 16:29 97.9 26 96 Nasal Cannula 2.0 97.9 EKG: EKG: EKG is interpreted at 1624 Rhythm: atrial fibrillation with aberrancy, with RVR Rate: 147 bpm RBBB No STEMI Radiology/Procedures: Radiology/Procedures: IMAGING REPORT Signed PATIENT: CECILIA PITT ACCOUNT: [id number] : 1940 LOCATION: ER AGE: 80 SEX: M EXAM STATUS: REG ER ORD. PHYSICIAN: ANA WOLFE DO REASON: dyspnea PROCEDURE: PORTABLE CHEST 1V Site ID: [id number] EXAMINATION: XR CHEST 1V. HISTORY: 80 years Male Reason: dyspnea / COMPARISON: April 02, 2021. Findings: The heart is enlarged. There is elevation of the left hemidiaphragm with the left basilar infiltrate and atelectasis, increased compared to the previous exam. The right lung demonstrate no significant consolidation. There is no effusion or pneumothorax. The mediastinum and traci appear unremarkable. Sternotomy wires are seen. Impression: Left basilar infiltrate and atelectasis. Electronically signed by: Yoshi Staley MD (06/14/2021 5:35 PM) [id number] DICTATED and SIGNED BY: YOSHI STALEY MD DATE: 06/14/21 [id number] Course & Med Decision Making: Course & Med Decision Making Pertinent Labs and Imaging studies reviewed. (See chart for details) The patient is placed on supplemental oxygen, secondary to room air hypoxia. He is saturating in the high 90s on nasal cannula. Blood cultures are obtained. I did order Covid swab, which is pending at time of his admission. Influenza swab is negative. He was empirically treated for community-acquired pneumonia with IV Rocephin and p.o. azithromycin. He does appear to have some acute kidney injury, with increase in creatinine. He does appear to be slightly clinically dehydrated. He is given a small fluid bolus as well as a dose of IV Lasix. IV diltiazem was given, heart rate improved to the 110s. Blood pressure stable. He reports feeling much better. He is no longer in any respiratory distress. Tachypnea is improved. Oxygenation improved. I have discussed the findings, differential diagnosis and plan of care with him. I recommend admiss ion, he is comfortable with this. He is accepted for admission by Dr. Engel. Kelsy Disclaimer: Kelsy Disclaimer: This electronic medical record was generated, in whole or in part, using a voice recognition dictation system. Departure Departure Impression: Primary Impression: Left lower lobe pneumonia Additional Impressions: Hypoxia Congestive heart failure Acute kidney injury Disposition: ADMITTED INPATIENT [facility] Condition: IMPROVED Referrals: CAM ZAVALETA MD (PCP) ANA WOLFE DO Jun 14, 2021 17:45
[2021-06-14 17:46] LABS: INFLUENZA A PATIENT NEGATIVE (NEGATIVE); INFLUENZA B PATIENT NEGATIVE (NEGATIVE)
[2021-06-14] MEDS ORDERED: IV NORMAL SALINE 500ML BAG 500 ML IV ONE (18:00)
[2021-06-14] MEDS ORDERED: AZITHROMYCIN 250 MG TABLET. PO ONE (18:30)
[2021-06-14] MEDS ORDERED: ACETAMINOPHEN 325 MG TABLET. PO PRN ×2 (18:30→18:45)
[2021-06-14] MEDS ORDERED: FUROSEMIDE 20 MG/2 ML VIAL. IVP ONE (18:30)
[2021-06-14] MEDS ORDERED: cefTRIAXone IV Push 1 GM VIAL. IVP ONE (18:30)
[2021-06-14] MEDS ORDERED: LORazepam 0.5 MG TABLET PO PRN (18:45)
[2021-06-14] MEDS ORDERED: PROCHLORPERAZINE 10 MG/2 ML VIAL. IV PRN (18:45)
[2021-06-14] MEDS ORDERED: ZOLPIDEM 5 MG TABLET. PO PRN (18:45)
[2021-06-14] MEDS ORDERED: ONDANSETRON PF 4 MG/2 ML VIAL. IVP PRN (18:45)
[2021-06-14] MEDS ORDERED: SENNOSIDES 8.6 MG TABLET PO PRN (18:45)
[2021-06-14] MEDS ORDERED: DOCUSATE SODIUM 100 MG CAPSULE. PO PRN (18:45)
[2021-06-14] MEDS ORDERED: DEXTROSE 50% 25 GM / 50ML DISP.SYRIN. IV PRN (18:45)
[2021-06-14 19:30] VITALS: BP 104/63
[2021-06-14] MEDS ORDERED: MAGNESIUM SULFATE 2GM 50 ML IV ONE (20:00)
--- NOTE | 2021-06-14 21:14 | PDOC1 ---
History and Physical Date of Service: DOS: DATE: 06/14/21 TIME: 21:09 Chief Complaint: Chief Complain: Shortness of breath and cough History of Present Illness: HPI: History obtained from discussion with the ED physician and chart review: Patient is a 80-year-old -[place]ian male with past medical history of CHF with LVEF of 30%, diabetes mellitus type 2, hypertension, asthma who comes in w ith shortness of breath and cough for 1 week. He also complained of weakness in his legs and some phlegm. Endorses also lower extremity swelling that has increased from his baseline. Denies any fevers, chest pain, abdominal pain, diarrhea, syncope, dizziness, hematuria or palpitations. No recent travel or sick contacts. He is vaccinated against Covid. Past Medical/Surgical History: PMH/PSH: Past Medical History: Anemia, Asthma, CAD, CHFEF 30%,, Diabetes-Type II, High C holesterol, Hypertension, Vascular Disease Past Surgical History: HERNIA, aortic dissection repair Allergies: Allergies: Coded Allergies: No Known Drug Allergies (Unverified , 06/14/21) Family History: Family History: Reviewed with no relevant findings Social History: Social History: Smoking Status: Former Smoker Alcohol Use: None Drug Use: None Current Medications: Current Medications Current Medications Diltiazem HCl (Cardizem Iv Push) 10 mg 1X ONCE IVP Last administered on 06/14/21at 16:45; Start 06/14/21 at 16:45; Stop 06/14/21 at 16:46; Status DC Ceftriaxone Sodium (Rocephin) 2 gm 1X ONCE IVP Last administered on 06/14/21at 18:30; Start 06/14/21 at 18:30; Stop 06/14/21 at 18:31; Status DC Azithromycin (Zithromax) 500 mg 1X ONCE PO Last administered on 06/14/21at 18:30; Start 06/14/21 at 18:30; Stop 06/14/21 at 18:31; Status DC Sodium Chloride 500 ml @ 500 mls/hr 1X ONCE IV ; Start 06/14/21 at 18:00; Stop 06/14/21 at 18:59; Status DC Furosemide (Lasix) 20 mg 1X ONCE IVP Last administered on 06/14/21at 18:30; Start 06/14/21 at 18:30; Stop 06/14/21 at 18:31; Status DC Acetaminophen (Tylenol) 650 mg PRN Q4HRS PRN PO FEVER > 100.3'F; Start 06/14/21 at 18:30; Stop 06/15/21 at 18:29 Sennosides (Senna) 17.2 mg PRN BID PRN PO CONSTIPATION; Start 06/14/21 at 18 :45 Docusate Sodium (Colace) 100 mg PRN DAILY PRN PO HARD STOOLS; Start 06/14/21 at 18:45 Ondansetron HCl (Zofran) 4 mg PRN Q6HRS PRN IVP NAUSEA/VOMITING; Start 06/14/21 at 18:45 Insulin Human Lispro (HumaLOG) 0-5 UNITS TIDWMEALS SQ ; Start 06/15/21 at 08:00 Dextrose (Dextrose 50%-Water Syringe) 12.5 gm PRN Q15MIN PRN IV SEE COMMENTS; Start 06/14/21 at 18:45 Acetaminophen (Tylenol) 650 mg PRN Q4HRS PRN PO TEMP OVER 100.4F OR MILD PAIN; Start 06/14/21 at 18:45 Lorazepam (Ativan) 0.5 mg PRN Q6HRS PRN PO ANXIETY / AGITATION; Start 06/14/21 at 18:45 Lorazepam (Ativan Inj) 0.25 mg PRN Q4HRS PRN IV ANXIETY / AGITATION; Start 06/14/21 at 18:45 Heparin Sodium (Porcine) (Heparin Sodium) 5,000 unit Q12HR SQ ; Start 06/14/21 at 21:00 Azithromycin 500 mg/Sodium Chloride 250 ml @ 250 mls/hr Q24H IV ; Start 06/15/21 at 18:00 Ceftriaxone Sodium (Rocephin) 1 gm Q24H IVP ; Start 06/15/21 at 18:00 Prochlorperazine Edisylate (Compazine) 10 mg PRN Q6HRS PRN IV NAUSEA/VOMITING; Start 06/14/21 at 18:45 Zolpidem Tartrate (Ambien) 2.5 mg PRN QHS PRN PO INSOMNIA; Start 06/14/21 at 18:45 Magnesium Sulfate 50 ml @ 25 mls/hr 1X ONCE IV ; Start 06/14/21 at 20:00; Stop 06/14/21 at 21:59 Active Scripts Active Aspirin Ec (Aspirin) 81 Mg Tablet.dr 81 Mg PO DAILYWBKFT Aldactone (Spironolactone) 25 Mg Tablet 25 Mg PO DAILY Entresto 24 mg-26 mg Tablet (Sacubitril/Valsartan) 1 Each Tablet 1 Tab PO BID Metoprolol Succinate ( Xl ) (Metoprolol Succinate) 25 Mg Tab.er.24h 25 Mg PO DAILY Klor-Con M20 (Potassium Chloride) 20 Meq Tab.er.prt 20 Meq PO DAILYWBKFT 10 Days Reported Ferrous Sulfate 325 Mg Tablet 1 Tab PO DAILY Prilosec Otc (Omeprazole Magnesium) 20 Mg Tablet.dr 1 Tab PO DAILY 30 Days Furosemide 40 Mg Tablet 40 Mg PO DAILY Docusate Sodium 100 Mg Capsule 100 Mg PO BID PRN Atorvastatin Calcium 40 Mg Tablet 1 Tab PO QHS ROS: Review of Systems Review of System REVIEW OF SYSTEMS: GENERAL: Denies weakness SKIN: No bruising, hair changes or rashes. EYES: No blurred, double or loss of vision. NOSE AND THROAT: No history of nosebleeds, hoarseness or sore throat. HEART: No history of palpitations, chest pain or shortness of breath on exertion. LUNGS: Denies cough, hemoptysis, wheezing or shortness of breath. GASTROINTESTINAL: Denies changes in appetite, nausea, vomiting, diarrhea or constipation. GENITOURINARY: No history of frequency, urgency, hesitancy or nocturia. NEUROLOGIC: Denies history of numbness, tingling, or tremor. PSYCHIATRIC: No history of panic, anxiety or depression. ENDOCRINE: No history of heat or cold intolerance, polyuria or polydipsia. EXTREMITIES: Denies joint pain, pain on walking or stiffness. Physical Exam: Vital Signs: Vital Signs Date Time Temp Pulse Resp B/P (MAP) Pulse Ox O2 Delivery O2 Flow Rate FiO2 06/14/21 18:22 120 22 102/58 (73) 96 Nasal Cannula 3.0 06/14/21 16:29 97.9 97.9 Physcial Exam: General: mild respiratory distress initially, he is mildly acutely ill- appearing, and chronically ill-appearing. He is not toxic. HEENT: Pupils equally round and reactive to light, EOMI, no discharge, normal conjunctiva Neck: Supple, no nuchal rigidity, no JVD, trachea midline, no tenderness Cardiac: RRR, no murmurs, no gallops, no rubs Chest/Lungs: Moderate tachypnea, diffuse coarse rhonchi, bibasilar rales, worse on the left base, no wheezing, no stridor, speaks in full and clear sentences. Abdomen: soft, non-distended, no guarding, no peritoneal signs, non-tender Back: No tenderness Extremities: no edema, pulses intact, non-tender,capillary refill <3 sec bilateral upper and lower extremities, Neuro: Alert and oriented x 4, no focal deficits, normal speech Labs: Labs: Laboratory Tests Test 06/14/21 16:25 06/14/21 17:10 06/14/21 20:26 White Blood Count 26.9 x10^3/uL (4.0-11.0) Red Blood Count 5.11 x10^6/uL (4.30-5.70) Hemoglobin 10.3 g/dL (13.0-17.5) Hematocrit 33.9 % (39.0-53.0) Mean Corpuscular Volume 66 fL (79-100) Mean Corpuscular Hemoglobin 20 pg (25-35) Mean Corpuscular Hemoglobin Concent 31 g/dL (31-37) Red Cell Distribution Width 22.0 % (11.5-14.5) Platelet Count 285 x10^3/uL (140-400) Neutrophils (%) (Auto) 99 % (31-73) Lymphocytes (%) (Auto) 1 % (24-48) Monocytes (%) (Auto) 0 % (0-9) Eosinophils (%) (Auto) 0 % (0-3) Basophils (%) (Auto) 0 % (0-3) Neutrophils # (Auto) 26.6 x10^3/uL (1.8-7.7) Lymphocytes # (Auto) 0.2 x10^3/uL (1.0-4.8) Monocytes # (Auto) 0.1 x10^3/uL (0.0-1.1) Eosinophils # (Auto) 0.0 x10^3/uL (0.0-0.7) Basophils # (Auto) 0.0 x10^3/uL (0.0-0.2) Segmented Neutrophils % 90 % (35-66) Band Neutrophils % 7 % (0-9) Lymphocytes % 2 % (24-48) Monocytes % 1 % (0-10) Toxic Vacuolation Present Platelet Estimate Adequate (ADEQUATE) Hypochromasia Marked Poikilocytosis Slight Anisocytosis Mod Microcytosis Marked Sodium Level 127 mmol/L (136-145) Potassium Level 3.8 mmol/L (3.5-5.1) Chloride Level 91 mmol/L (98-107) Carbon Dioxide Level 19 mmol/L (21-32) Anion Gap 17 (6-14) Blood Urea Nitrogen 39 mg/dL (8-26) Creatinine 2.3 mg/dL (0.7-1.3) Estimated GFR (Cockcroft-Gault) 33.4 BUN/Creatinine Ratio 17 (6-20) Glucose Level 138 mg/dL (70-99) Calcium Level 8.3 mg/dL (8.5-10.1) Magnesium Level 1.7 mg/dL (1.8-2.4) Total Bilirubin 1.8 mg/dL (0.2-1.0) Aspartate Amino Transf (AST/SGOT) 32 U/L (15-37) Alanine Aminotransferase (ALT/SGPT) 12 U/L (16-63) Alkaline Phosphatase 55 U/L (46-116) Troponin I Quantitative 0.033 ng/mL (0.000-0.055) JE-Zkv-B-Type Natriuretic Peptide 71316 pg/mL (0-449) Total Protein 10.3 g/dL (6.4-8.2) Albumin 2.0 g/dL (3.4-5.0) Albumin/Globulin Ratio 0.2 (1.0-1.7) Influenza Type A Antigen Negative (NEGATIVE) Influenza Type B Antigen Negative (NEGATIVE) Glucose (Fingerstick) 115 mg/dL (70-99) Laboratory Tests Test 06/14/21 16:25 06/14/21 17:10 06/14/21 20:26 White Blood Count 26.9 x10^3/uL (4.0-11.0) Red Blood Count 5.11 x10^6/uL (4.30-5.70) Hemoglobin 10.3 g/dL (13.0-17.5) Hematocrit 33.9 % (39.0-53.0) Mean Corpuscular Volume 66 fL (79-100) Mean Corpuscular Hemoglobin 20 pg (25-35) Mean Corpuscular Hemoglobin Concent 31 g/dL (31-37) Red Cell Distribution Width 22.0 % (11.5-14.5) Platelet Count 285 x10^3/uL (140-400) Neutrophils (%) (Auto) 99 % (31-73) Lymphocytes (%) (Auto) 1 % (24-48) Monocytes (%) (Auto) 0 % (0-9) Eosinophils (%) (Auto) 0 % (0-3) Basophils (%) (Auto) 0 % (0-3) Neutrophils # (Auto) 26.6 x10^3/uL (1.8-7.7) Lymphocytes # (Auto) 0.2 x10^3/uL (1.0-4.8) Monocytes # (Auto) 0.1 x10^3/uL (0.0-1.1) Eosinophils # (Auto) 0.0 x10^3/uL (0.0-0.7) Basophils # (Auto) 0.0 x10^3/uL (0.0-0.2) Segmented Neutrophils % 90 % (35-66) Band Neutrophils % 7 % (0-9) Lymphocytes % 2 % (24-48) Monocytes % 1 % (0-10) Toxic Vacuolation Present Platelet Estimate Adequate (ADEQUATE) Hypochromasia Marked Poikilocytosis Slight Anisocytosis Mod Microcytosis Marked Sodium Level 127 mmol/L (136-145) Potassium Level 3.8 mmol/L (3.5-5.1) Chloride Level 91 mmol/L (98-107) Carbon Dioxide Level 19 mmol/L (21-32) Anion Gap 17 (6-14) Blood Urea Nitrogen 39 mg/dL (8-26) Creatinine 2.3 mg/dL (0.7-1.3) Estimated GFR (Cockcroft-Gault) 33.4 BUN/Creatinine Ratio 17 (6-20) Glucose Level 138 mg/dL (70-99) Calcium Level 8.3 mg/dL (8.5-10.1) Magnesium Level 1.7 mg/dL (1.8-2.4) Total Bilirubin 1.8 mg/dL (0.2-1.0) Aspartate Amino Transf (AST/SGOT) 32 U/L (15-37) Alanine Aminotransferase (ALT/SGPT) 12 U/L (16-63) Alkaline Phosphatase 55 U/L (46-116) Troponin I Quantitative 0.033 ng/mL (0.000-0.055) AB-Jtw-U-Type Natriuretic Peptide 08374 pg/mL (0-449) Total Protein 10.3 g/dL (6.4-8.2) Albumin 2.0 g/dL (3.4-5.0) Albumin/Globulin Ratio 0.2 (1.0-1.7) Influenza Type A Antigen Negative (NEGATIVE) Influenza Type B Antigen Negative (NEGATIVE) Glucose (Fingerstick) 115 mg/dL (70-99) Images: Images PROCEDURE: PORTABLE CHEST 1V Site ID: [id number] EXAMINATION: XR CHEST 1V. HISTORY: 80 years Male Reason: dyspnea / COMPARISON: April 02, 2021. Findings: The heart is enlarged. There is elevation of the left hemidiaphragm with the left basilar infiltrate and atelectasis, increased compared to the previous exam. The right lung demonstrate no significant consolidation. There is no effusion or pneumothorax. The mediastinum and traci appear unremarkable. Sternotomy wires are seen. Impression: Left basilar infiltrate and atelectasis. Assessment/Plan Assessment/Plan Acute hypoxic respiratory failure Acute left lower lobe community-acquired pneumonia, possible gram-negative organisms, possible aspiration Microcytic anemia, likely due to SREEKANTH Acute CHF exacerbation Acute electrolyte derangementhyponatremia, hypochloremia, hypomagnesemia likely due to volume depletion DARIA due to vasomotor nephropathy Elevated BNP due to acute volume overload Severe protein malnutrition History of CHF with LVEF of 30% History of diabetes mellitus type 2 History of dyslipidemia History of hypertension History of aortic dissection repair Admit to hospitalist service for further management Continue empiric IV antibiotics Pending blood and sputum cultures Pending MRSA and Legionella antigen in the urine O2 supplementation to maintain O2 saturation greater than 90% Strict I's and O's Lasix as needed and daily weights IV electrolyte replacement Avoid nephrotoxic agents R ISS and Accu-Cheks Inpatient systolic blood pressure goals between 140-1 80 Pending medication reconciliation Heparin for DVT prophylaxis ADA/cardiac diet CODE STATUS full Discussed with RN and SW Disposition inpatient management as above DPOA: Daughter, Natalie In addition to my E/M visit, advance care planning done with A total time of 20 minutes was spent from 830 to 850 face to face in discussion regarding the patient's goals of care, CODE STATUS. Justifications for Admission Other Justification chf exacerbation and Pneumonia TIERRA SHELTON MD Jun 14, 2021 21:14
[2021-06-14] MEDS: HEPARIN for SUB-Q USE 5,000 UNIT/ML VIAL. SQ SCH (22:54)
[2021-06-14 23:00] VITALS: BP 84/54
[2021-06-14 23:41] LABS: BILIRUBIN,URINE NEGATIVE (NEG); CLARITY,URINE CLOUDY; COLOR,URINE AMBER; NITRITE,URINE NEGATIVE (NEG); PROTEIN,URINE 30 mg/dL (NEG-TRACE); UROBILINOGEN,URINE 0.2 mg/dL (0.2 mg/dL)
[2021-06-14 23:49] LABS: AMORPHOUS SEDIMENT,UR PRESENT /HPF; BACTERIA,URINE FEW /HPF (0-FEW); GRANULAR CASTS,URINE FEW /HPF; HYALINE CASTS, URINE MANY /HPF
[2021-06-15] MEDS ORDERED: ALBU2.5V8 IH (00:12)
[2021-06-15 03:01] LABS: BASO % 0 % (0-3); EOS % 0 % (0-3); HEMATOCRIT 31.6 % (39.0-53.0); HEMOGLOBIN 9.5 g/dL (13.0-17.5); LYMPH # 0.3 x10^3/uL (1.0-4.8); LYMPH % 1 % (24-48); MEAN CORPUSCULAR HEMOGLOBIN 20 pg (25-35); MEAN CORPUSCULAR HGB CONC 30 g/dL (31-37); MEAN CORPUSCULAR VOLUME 66 fL (79-100); MONO # 0.1 x10^3/uL (0.0-1.1); MONO % 1 % (0-9); NEUT # 28.1 x10^3/uL (1.8-7.7); NEUT % 99 % (31-73); PLATELET COUNT 249 x10^3/uL (140-400); RED BLOOD COUNT 4.76 x10^6/uL (4.30-5.70); RED CELL DISTRIBUTION WIDTH 21.5 % (11.5-14.5); WHITE BLOOD COUNT 28.5 x10^3/uL (4.0-11.0)
[2021-06-15 03:09] LABS: CALCIUM 8.1 mg/dL (8.5-10.1); CREATININE 2.1 mg/dL (0.7-1.3); MAGNESIUM 2.1 mg/dL (1.8-2.4); PHOSPHORUS 4.7 mg/dL (2.6-4.7); POTASSIUM 3.3 mmol/L (3.5-5.1)
[2021-06-15 03:29] VITALS: BP 82/50
[2021-06-15 07:15] VITALS: BP 88/54
[2021-06-15] MEDS: INSULIN LISPRO 300 UNITS/3 ML VIAL. SQ SCH ×3 (08:00→16:28)
[2021-06-15] MEDS: HEPARIN for SUB-Q USE 5,000 UNIT/ML VIAL. SQ SCH ×2 (08:45→21:58)
--- NOTE | 2021-06-15 10:10 | PDOC2 ---
DANIELA CAST MERCHANT TAILOR 06/15/21 1010: CARDIAC CONSULT DATE OF CONSULT Date of Consult DATE: 06/15/21 TIME: 10:05 REASON FOR CONSULT Reason for Consult: CHF exacerbation REFERRING PHYSICIAN Referring Physician: Hayley SOURCE Source: Chart review, Patient HISTORY OF PRESENT ILLNESS HISTORY OF PRESENT ILLNESS This is a 80 yo male admitted for complains of productive cough and increasing SOA. Also with some leg swelling. He has hx fo systolic CHF and PAFIB. Also noted with GI bleed. Denies any chest pain palpitations. No complains of chills, nausea or vomiting or diarrhea. He is vaccinated for covid-19. No dizziness or passing out. PAST MEDICAL HISTORY Past Medical History Cardiovascular: AFIB, CAD (non-obstructive, mild), CHF (systolic), HTN, Hyperlipidemia, Other (PAD, carotid disease), AAA, NICM Heme/Onc: Anemia NOS, GIB Musculoskeletal: Osteoarthritis Endocrine: Diabetes PAST SURGICAL HISTORY Past Surgical History Other (ascending aortic aneurysm repair with hemiarch) FAMILY HISTORY Family History: Heart Disease SOCIAL HISTORY Smoke: No ALCOHOL: none Drugs: None Lives: with Family CURRENT MEDICATIONS CURRENT MEDICATIONS Current Medications Medications (Trade) Dose Ordered Sig/Nathaly Route PRN Reason Start Time Stop Time Status Last Admin Dose Admin Diltiazem HCl (Cardizem Iv Push) 10 mg 1X ONCE IVP 06/14/21 16:45 06/14/21 16:46 DC 06/14/21 16:45 Ceftriaxone Sodium (Rocephin) 2 gm 1X ONCE IVP 06/14/21 18:30 06/14/21 18:31 DC 06/14/21 18:30 Azithromycin (Zithromax) 500 mg 1X ONCE PO 06/14/21 18:30 06/14/21 18:31 DC 06/14/21 18:30 Furosemide (Lasix) 20 mg 1X ONCE IVP 06/14/21 18:30 06/14/21 18:31 DC 06/14/21 18:30 Heparin Sodium (Porcine) (Heparin Sodium) 5,000 unit Q12HR SQ 06/14/21 21:00 06/15/21 08:45 Magnesium Sulfate 50 ml @ 25 mls/hr 1X ONCE IV 06/14/21 20:00 06/14/21 21:59 DC 06/14/21 22:55 ALLERGIES ALLERGIES: Coded Allergies: No Known Drug Allergies (Unverified , 10/21/21) ROS Review of System 14 point ROS evaluated with pertinent positives noted per HPI PHYSICAL EXAM General: Alert, Oriented X3, Cooperative, No acute distress HEENT: Atraumatic, Mucous membr. moist/pink Lungs: Other (diminished) Heart: Other (AFIB RVR) Abdomen: Soft Extremities: No cyanosis, Other (trace to +1 bilateral LE edema) Skin: No breakdown, No significant lesion Neuro: Normal speech, Sensation intact Psych/Mental Status: Mood NL MUSCULOSKELETAL: Osteoarthritic changes both hands VITALS/I&O VITALS/I&O: Vital Signs Date Time Temp Pulse Resp B/P (MAP) Pulse Ox O2 Delivery O2 Flow Rate FiO2 06/15/21 07:15 97.8 102 20 88/54 (65) 96 Nasal Cannula 3.0 97.8 I & O 06/14/21 06/14/21 06/15/21 15:00 23:00 07:00 Intake Total 0 ml 0 ml Balance 0 ml 0 ml LABS Lab: Laboratory Tests Test 06/14/21 16:25 06/14/21 17:00 06/14/21 17:10 06/14/21 20:26 White Blood Count 26.9 x10^3/uL (4.0-11.0) H Red Blood Count 5.11 x10^6/uL (4.30-5.70) Hemoglobin 10.3 g/dL (13.0-17.5) L Hematocrit 33.9 % (39.0-53.0) L Mean Corpuscular Volume 66 fL (79-100) L Mean Corpuscular Hemoglobin 20 pg (25-35) L Mean Corpuscular Hemoglobin Concent 31 g/dL (31-37) Red Cell Distribution Width 22.0 % (11.5-14.5) H Platelet Count 285 x10^3/uL (140-400) Neutrophils (%) (Auto) 99 % (31-73) H Lymphocytes (%) (Auto) 1 % (24-48) L Monocytes (%) (Auto) 0 % (0-9) Eosinophils (%) (Auto) 0 % (0-3) Basophils (%) (Auto) 0 % (0-3) Neutrophils # (Auto) 26.6 x10^3/uL (1.8-7.7) H Lymphocytes # (Auto) 0.2 x10^3/uL (1.0-4.8) L Monocytes # (Auto) 0.1 x10^3/uL (0.0-1.1) Eosinophils # (Auto) 0.0 x10^3/uL (0.0-0.7) Basophils # (Auto) 0.0 x10^3/uL (0.0-0.2) Segmented Neutrophils % 90 % (35-66) H Band Neutrophils % 7 % (0-9) Lymphocytes % 2 % (24-48) L Monocytes % 1 % (0-10) Toxic Vacuolation Present Platelet Estimate Adequate (ADEQUATE) Hypochromasia Marked Poikilocytosis Slight Anisocytosis Mod Microcytosis Marked Sodium Level 127 mmol/L (136-145) L Potassium Level 3.8 mmol/L (3.5-5.1) Chloride Level 91 mmol/L (98-107) L Carbon Dioxide Level 19 mmol/L (21-32) L Anion Gap 17 (6-14) H Blood Urea Nitrogen 39 mg/dL (8-26) H Creatinine 2.3 mg/dL (0.7-1.3) H Estimated GFR (Cockcroft-Gault) 33.4 BUN/Creatinine Ratio 17 (6-20) Glucose Level 138 mg/dL (70-99) H Calcium Level 8.3 mg/dL (8.5-10.1) L Magnesium Level 1.7 mg/dL (1.8-2.4) L Total Bilirubin 1.8 mg/dL (0.2-1.0) H Aspartate Amino Transferase (AST) 32 U/L (15-37) Alanine Aminotransferase (ALT) 12 U/L (16-63) L Alkaline Phosphatase 55 U/L (46-116) Troponin I Quantitative 0.033 ng/mL (0.000-0.055) NK-Scu-X-Type Natriuretic Peptide 48164 pg/mL (0-449) H Total Protein 10.3 g/dL (6.4-8.2) H Albumin 2.0 g/dL (3.4-5.0) L Albumin/Globulin Ratio 0.2 (1.0-1.7) L SARS-CoV-2 Antigen (Rapid) Negative (NEGATIVE) Influenza Type A Antigen Negative (NEGATIVE) Influenza Type B Antigen Negative (NEGATIVE) Glucose (Fingerstick) 115 mg/dL (70-99) H Test 06/14/21 22:50 06/14/21 23:30 06/15/21 02:00 06/15/21 07:48 Lactic Acid Level 1.6 mmol/L (0.4-2.0) Troponin I Quantitative 0.039 ng/mL (0.000-0.055) 0.037 ng/mL (0.000-0.055) Urine Color Cami Urine Clarity Cloudy Urine pH 5.0 (<5.0-8.0) Urine Specific Soldier 1.015 (1.000-1.030) Urine Protein 30 mg/dL (NEG-TRACE) Urine Glucose (UA) Negative mg/dL (NEG) Urine Ketones (Stick) Negative mg/dL (NEG) Urine Blood Moderate (NEG) Urine Nitrite Negative (NEG) Urine Bilirubin Negative (NEG) Urine Urobilinogen Dipstick 0.2 mg/dL (0.2 mg/dL) Urine Leukocyte Esterase Small (NEG) Urine RBC 6-10 /HPF (0-2) Urine WBC 5-10 /HPF (0-4) Urine Squamous Epithelial Cells Mod /LPF Urine Amorphous Sediment Present /HPF Urine Bacteria Few /HPF (0-FEW) Urine Hyaline Casts Many /HPF Urine Granular Casts Few /HPF Urine Mucus Marked /LPF White Blood Count 28.5 x10^3/uL (4.0-11.0) H Red Blood Count 4.76 x10^6/uL (4.30-5.70) Hemoglobin 9.5 g/dL (13.0-17.5) L Hematocrit 31.6 % (39.0-53.0) L Mean Corpuscular Volume 66 fL (79-100) L Mean Corpuscular Hemoglobin 20 pg (25-35) L Mean Corpuscular Hemoglobin Concent 30 g/dL (31-37) L Red Cell Distribution Width 21.5 % (11.5-14.5) H Platelet Count 249 x10^3/uL (140-400) Neutrophils (%) (Auto) 99 % (31-73) H Lymphocytes (%) (Auto) 1 % (24-48) L Monocytes (%) (Auto) 1 % (0-9) Eosinophils (%) (Auto) 0 % (0-3) Basophils (%) (Auto) 0 % (0-3) Neutrophils # (Auto) 28.1 x10^3/uL (1.8-7.7) H Lymphocytes # (Auto) 0.3 x10^3/uL (1.0-4.8) L Monocytes # (Auto) 0.1 x10^3/uL (0.0-1.1) Eosinophils # (Auto) 0.0 x10^3/uL (0.0-0.7) Basophils # (Auto) 0.0 x10^3/uL (0.0-0.2) Sodium Level 127 mmol/L (136-145) L Potassium Level 3.3 mmol/L (3.5-5.1) L Chloride Level 93 mmol/L (98-107) L Carbon Dioxide Level 22 mmol/L (21-32) Anion Gap 12 (6-14) Blood Urea Nitrogen 46 mg/dL (8-26) H Creatinine 2.1 mg/dL (0.7-1.3) H Estimated GFR (Cockcroft-Gault) 37.0 Glucose Level 142 mg/dL (70-99) H Calcium Level 8.1 mg/dL (8.5-10.1) L Phosphorus Level 4.7 mg/dL (2.6-4.7) Magnesium Level 2.1 mg/dL (1.8-2.4) Glucose (Fingerstick) 120 mg/dL (70-99) H Laboratory Tests 06/14/21 16:25 06/15/21 02:00 Laboratory Tests 06/14/21 16:25 06/15/21 02:00 ASSESSMENT/PLAN ASSESSMENT/PLAN 1. Acute respiratory failure with associated possible pneumonia and CHF and AFIB RVR 2. Anemia with h/o GIB and Fe deficiency: prior suspicion for SB AVMs 3. AFIB RVR with chronic RBBB: paroxysmal by hx 4. Acute on chronic diastolic/systolic CHF, NICM: Limited echo with LVEF 30-35% 5. Hypertension: presently at low end 6. Leukocytosis 7. Hyperlipidema; statin 8. Diabetes, II 9. AAA; s/p hemiarch repair 02/11/2018, stable Recommendations Received lasix will further pending BP trend. Presently he is not in distress and no symptoms in regards to low BP. Will hold BP regimen for now Digoxin IV x1. Will maintain rate control. If rate is not controlled will repeat digoxin otherwise will consider amiodarone. Not a candidate for chronic anticoagulation due to GI bleed. Continue with ASA for stroke prevention Consider for [employer] on an outpatient basis for primary preventions of SCD. Previously on LifeVest but discontinued as it was uncomfortable Outpatient referral for [facility]. Supportive care Continue Abx treatment MEKA VARGAS MD 06/15/21 1722: CARDIAC CONSULT ASSESSMENT/PLAN ASSESSMENT/PLAN The patient was seen and interviewed as well as examined at the bedside. The chart was reviewed. The case was discussed. Agree with the plan of care. Patient is well-known to our service. We will plan for rate control as able with digoxin and other therapies. May need cardioversion if he continues to remain hypotensive. Supportive care for now. He is at high risk for progressive heart failure. DANIELA CAST APRN Jun 15, 2021 10:10 MEKA VARGAS MD Jun 15, 2021 17:22
[2021-06-15] MEDS ORDERED: DIGOXIN IV 500 MCG/2 ML AMPUL. IV ONE ×2 (10:30→16:00)
[2021-06-15] MEDS ORDERED: POTASSIUM CHLORIDE 20 MEQ TABLET.ER. PO ONE (10:30)
--- NOTE | 2021-06-15 10:45 | PDOC ---
[employer] PROGRESS NOTE Date of Service DOS: DATE: 06/15/21 TIME: 10:41 Chief Complaint Chief Complaint Acute kidney injury Congestive heart failure Hypoxia Left lower lobe pneumonia History of Present Illness History of Present Illness 06/15 Patient seen and examined at beside. Chart reviewed. Case discussed with RN and case management. History obtained from discussion with the ED physician and chart review: Patient is a 80-year-old -[place] male with past medical history of CHF with LVEF of 30%, diabetes mellitus type 2, hypertension, asthma who comes in with shortness of breath and cough for 1 week. He also complained of weakness in his legs and some phlegm. Endorses also lower extremity swelling that has increased from his baseline. Denies any fevers, chest pain, abdominal pain, diarrhea, syncope, dizziness, hematuria or palpitations. No recent travel or sick contacts. He is vaccinated against Covid. Vitals/I&O Vitals/I&O: Vital Signs Date Time Temp Pulse Resp B/P (MAP) Pulse Ox O2 Delivery O2 Flow Rate FiO2 06/15/21 10:20 122 06/15/21 07:15 97.8 20 88/54 (65) 96 Nasal Cannula 3.0 97.8 I & O 06/14/21 06/14/21 06/15/21 15:00 23:00 07:00 Intake Total 0 ml 0 ml Balance 0 ml 0 ml Physical Exam General: Alert, Oriented X3, Cooperative, No acute distress Heart: Regular rate, No murmurs Lungs: Clear Abdomen: Normal bowel sounds, No tenderness, No masses Extremities: No clubbing, No edema Skin: No rashes Labs Labs: Laboratory Tests Test 06/14/21 16:25 06/14/21 17:00 06/14/21 17:10 06/14/21 20:26 White Blood Count 26.9 x10^3/uL (4.0-11.0) Red Blood Count 5.11 x10^6/uL (4.30-5.70) Hemoglobin 10.3 g/dL (13.0-17.5) Hematocrit 33.9 % (39.0-53.0) Mean Corpuscular Volume 66 fL (79-100) Mean Corpuscular Hemoglobin 20 pg (25-35) Mean Corpuscular Hemoglobin Concent 31 g/dL (31-37) Red Cell Distribution Width 22.0 % (11.5-14.5) Platelet Count 285 x10^3/uL (140-400) Neutrophils (%) (Auto) 99 % (31-73) Lymphocytes (%) (Auto) 1 % (24-48) Monocytes (%) (Auto) 0 % (0-9) Eosinophils (%) (Auto) 0 % (0-3) Basophils (%) (Auto) 0 % (0-3) Neutrophils # (Auto) 26.6 x10^3/uL (1.8-7.7) Lymphocytes # (Auto) 0.2 x10^3/uL (1.0-4.8) Monocytes # (Auto) 0.1 x10^3/uL (0.0-1.1) Eosinophils # (Auto) 0.0 x10^3/uL (0.0-0.7) Basophils # (Auto) 0.0 x10^3/uL (0.0-0.2) Segmented Neutrophils % 90 % (35-66) Band Neutrophils % 7 % (0-9) Lymphocytes % 2 % (24-48) Monocytes % 1 % (0-10) Toxic Vacuolation Present Platelet Estimate Adequate (ADEQUATE) Hypochromasia Marked Poikilocytosis Slight Anisocytosis Mod Microcytosis Marked Sodium Level 127 mmol/L (136-145) Potassium Level 3.8 mmol/L (3.5-5.1) Chloride Level 91 mmol/L (98-107) Carbon Dioxide Level 19 mmol/L (21-32) Anion Gap 17 (6-14) Blood Urea Nitrogen 39 mg/dL (8-26) Creatinine 2.3 mg/dL (0.7-1.3) Estimated GFR (Cockcroft-Gault) 33.4 BUN/Creatinine Ratio 17 (6-20) Glucose Level 138 mg/dL (70-99) Calcium Level 8.3 mg/dL (8.5-10.1) Magnesium Level 1.7 mg/dL (1.8-2.4) Total Bilirubin 1.8 mg/dL (0.2-1.0) Aspartate Amino Transf (AST/SGOT) 32 U/L (15-37) Alanine Aminotransferase (ALT/SGPT) 12 U/L (16-63) Alkaline Phosphatase 55 U/L (46-116) Troponin I Quantitative 0.033 ng/mL (0.000-0.055) VI-[place]x-V-Type Natriuretic Peptide 58437 pg/mL (0-449) Total Protein 10.3 g/dL (6.4-8.2) Albumin 2.0 g/dL (3.4-5.0) Albumin/Globulin Ratio 0.2 (1.0-1.7) SARS-CoV-2 Antigen (Rapid) Negative (NEGATIVE) Influenza Type A Antigen Negative (NEGATIVE) Influenza Type B Antigen Negative (NEGATIVE) Glucose (Fingerstick) 115 mg/dL (70-99) Test 06/14/21 22:50 06/14/21 23:30 06/15/21 02:00 06/15/21 07:48 Lactic Acid Level 1.6 mmol/L (0.4-2.0) Troponin I Quantitative 0.039 ng/mL (0.000-0.055) 0.037 ng/mL (0.000-0.055) Urine Color Cami Urine Clarity Cloudy Urine pH 5.0 (<5.0-8.0) Urine Specific [place] 1.015 (1.000-1.030) Urine Protein 30 mg/dL (NEG-TRACE) Urine Glucose (UA) Negative mg/dL (NEG) Urine Ketones (Stick) Negative mg/dL (NEG) Urine Blood Moderate (NEG) Urine Nitrite Negative (NEG) Urine Bilirubin Negative (NEG) Urine Urobilinogen Dipstick 0.2 mg/dL (0.2 mg/dL) Urine Leukocyte Esterase Small (NEG) Urine RBC 6-10 /HPF (0-2) Urine WBC 5-10 /HPF (0-4) Urine Squamous Epithelial Cells Mod /LPF Urine Amorphous Sediment Present /HPF Urine Bacteria Few /HPF (0-FEW) Urine Hyaline Casts Many /HPF Urine Granular Casts Few /HPF Urine Mucus Marked /LPF White Blood Count 28.5 x10^3/uL (4.0-11.0) Red Blood Count 4.76 x10^6/uL (4.30-5.70) Hemoglobin 9.5 g/dL (13.0-17.5) Hematocrit 31.6 % (39.0-53.0) Mean Corpuscular Volume 66 fL (79-100) Mean Corpuscular Hemoglobin 20 pg (25-35) Mean Corpuscular Hemoglobin Concent 30 g/dL (31-37) Red Cell Distribution Width 21.5 % (11.5-14.5) Platelet Count 249 x10^3/uL (140-400) Neutrophils (%) (Auto) 99 % (31-73) Lymphocytes (%) (Auto) 1 % (24-48) Monocytes (%) (Auto) 1 % (0-9) Eosinophils (%) (Auto) 0 % (0-3) Basophils (%) (Auto) 0 % (0-3) Neutrophils # (Auto) 28.1 x10^3/uL (1.8-7.7) Lymphocytes # (Auto) 0.3 x10^3/uL (1.0-4.8) Monocytes # (Auto) 0.1 x10^3/uL (0.0-1.1) Eosinophils # (Auto) 0.0 x10^3/uL (0.0-0.7) Basophils # (Auto) 0.0 x10^3/uL (0.0-0.2) Sodium Level 127 mmol/L (136-145) Potassium Level 3.3 mmol/L (3.5-5.1) Chloride Level 93 mmol/L (98-107) Carbon Dioxide Level 22 mmol/L (21-32) Anion Gap 12 (6-14) Blood Urea Nitrogen 46 mg/dL (8-26) Creatinine 2.1 mg/dL (0.7-1.3) Estimated GFR (Cockcroft-Gault) 37.0 Glucose Level 142 mg/dL (70-99) Calcium Level 8.1 mg/dL (8.5-10.1) Phosphorus Level 4.7 mg/dL (2.6-4.7) Magnesium Level 2.1 mg/dL (1.8-2.4) Glucose (Fingerstick) 120 mg/dL (70-99) Review of Systems Review of Systems: ROS negative except as noted in HPI. Assessment and Plan Assessmemt and Plan Assessment: Acute kidney injury Congestive heart failure Hypoxia Left lower lobe pneumonia Plan: Cardiac monitoring Serial cardiac enzymes Serial EKG Continue home meds DVT ppx PT/OT FULL CODE Comment Review of Relevant I have reviewed the following items jarvis (where applicable) has been applied. Medications: Current Medications Medications (Trade) Dose Ordered Sig/Nathaly Route PRN Reason Start Time Stop Time Status Last Admin Dose Admin Diltiazem HCl (Cardizem Iv Push) 10 mg 1X ONCE IVP 06/14/21 16:45 06/14/21 16:46 DC 06/14/21 16:45 Ceftriaxone Sodium (Rocephin) 2 gm 1X ONCE IVP 06/14/21 18:30 06/14/21 18:31 DC 06/14/21 18:30 Azithromycin (Zithromax) 500 mg 1X ONCE PO 06/14/21 18:30 06/14/21 18:31 DC 06/14/21 18:30 Furosemide (Lasix) 20 mg 1X ONCE IVP 06/14/21 18:30 06/14/21 18:31 DC 06/14/21 18:30 Heparin Sodium (Porcine) (Heparin Sodium) 5,000 unit Q12HR SQ 06/14/21 21:00 06/15/21 08:45 Magnesium Sulfate 50 ml @ 25 mls/hr 1X ONCE IV 06/14/21 20:00 06/14/21 21:59 DC 06/14/21 22:55 Potassium Chloride (Klor-Con) 40 meq 1X ONCE PO 06/15/21 10:30 06/15/21 10:31 DC 06/15/21 10:19 Digoxin (Lanoxin) 500 mcg 1X ONCE IV 06/15/21 10:30 06/15/21 10:31 DC 06/15/21 10:20 Justifications for Admission Other Justification chf exacerbation and Pneumonia MARTY SANTOYO III DO Jun 15, 2021 10:45
[2021-06-15 11:02] VITALS: BP 80/80
--- NOTE | 2021-06-15 14:16 | NUR ---
SS following for discharge planning. SS reviewed pt chart and discussed with pt RN. Pt is from home and is currently requiring oxygen at three liters nasal canula. Pt has no home oxygen. COVID19 negative. Cardiology following. Pt on IV Rocephin and IV Azithromycin. PT/OT ordered. SS will continue to follow for discharge planning.
[2021-06-15 15:00] VITALS: BP 82/53
[2021-06-15] MEDS: AZITHROMYCIN 500 MG in IV NORMAL SALINE 250ML 250 ML IV SCH (16:29)
[2021-06-15] MEDS: cefTRIAXone IV Push 1 GM VIAL. IVP SCH (16:29)
[2021-06-15 19:30] VITALS: BP 93/62
[2021-06-15] MEDS: LACTOBACILLUS RHAMNOSUS GG 1 CAPSULE. PO SCH (21:59)
[2021-06-15 23:20] VITALS: BP 87/51
[2021-06-16] VITALS (7 sets, daily range): BP systolic 86–100; BP diastolic 50–62
--- NOTE | 2021-06-16 01:24 | NUR ---
FOr approximately last 24 hours pt bp has been running in the 80's with MAP less than 70. Dr Bruno notified about consistent low bp. Pt reported that was told that if BP remained low was supposed to get blood - no order seen for said occurrence. Order given for 500 ml bolus x 1. RN explained to pt need for bolus - bolus administered over 2 hrs secondary to pt having hx of CHF. Will continue to monitor pt status closely.
[2021-06-16] MEDS ORDERED: IV NORMAL SALINE 500ML BAG 500 ML IV ONE (02:00)
[2021-06-16 03:45] LABS: BASO % 0 % (0-3); EOS % 0 % (0-3); HEMATOCRIT 30.4 % (39.0-53.0); HEMOGLOBIN 9.4 g/dL (13.0-17.5); LYMPH # 0.3 x10^3/uL (1.0-4.8); LYMPH % 2 % (24-48); MEAN CORPUSCULAR HEMOGLOBIN 21 pg (25-35); MEAN CORPUSCULAR HGB CONC 31 g/dL (31-37); MEAN CORPUSCULAR VOLUME 67 fL (79-100); MONO # 0.3 x10^3/uL (0.0-1.1); MONO % 2 % (0-9); NEUT # 19.1 x10^3/uL (1.8-7.7); NEUT % 97 % (31-73); PLATELET COUNT 258 x10^3/uL (140-400); RED BLOOD COUNT 4.56 x10^6/uL (4.30-5.70); RED CELL DISTRIBUTION WIDTH 21.8 % (11.5-14.5); WHITE BLOOD COUNT 19.7 x10^3/uL (4.0-11.0)
[2021-06-16 06:19] LABS: CALCIUM 7.5 mg/dL (8.5-10.1); CREATININE 1.7 mg/dL (0.7-1.3); GFR 47.3; MAGNESIUM 2.4 mg/dL (1.8-2.4); POTASSIUM 3.8 mmol/L (3.5-5.1)
[2021-06-16] MEDS: INSULIN LISPRO 300 UNITS/3 ML VIAL. SQ SCH ×3 (08:00→17:38)
[2021-06-16] MEDS: LACTOBACILLUS RHAMNOSUS GG 1 CAPSULE. PO SCH ×2 (08:43→20:15)
[2021-06-16] MEDS: ASPIRIN ENTERIC COATED 81 MG TABLET.DR. PO SCH (08:43)
[2021-06-16] MEDS: HEPARIN for SUB-Q USE 5,000 UNIT/ML VIAL. SQ SCH ×2 (08:46→20:24)
--- NOTE | 2021-06-16 12:14 | PDOC ---
[employer] PROGRESS NOTE Date of Service DOS: DATE: 06/16/21 TIME: 12:08 Chief Complaint Chief Complaint Acute kidney injury Congestive heart failure Hypoxia Left lower lobe pneumonia History of Present Illness History of Present Illness 06/16 Patient seen and examined at beside. Patient resting comfortably and is conversant. Chart reviewed. Case discussed with RN and case management. 06/15 Patient seen and examined at beside. Chart reviewed. Case discussed with RN and case management. History obtained from discussion with the ED physician and chart review: Patient is a 80-year-old -[place] male with past medical history of CHF with LVEF of 30%, diabetes mellitus type 2, hypertension, asthma who comes in with shortness of breath and cough for 1 week. He also complained of weakness in his legs and some phlegm. Endorses also lower extremity swelling that has increased from his baseline. Denies any fevers, chest pain, abdominal pain, diarrhea, syncope, dizziness, hematuria or palpitations. No recent travel or sick contacts. He is vaccinated against Covid. Vitals/I&O Vitals/I&O: Vital Signs Date Time Temp Pulse Resp B/P (MAP) Pulse Ox O2 Delivery O2 Flow Rate FiO2 06/16/21 08:00 Nasal Cannula 2.0 06/16/21 07:00 97.8 80 16 94/55 (68) 100 97.8 I & O 06/15/21 06/15/21 06/16/21 15:00 23:00 07:00 Intake Total 480 ml 240 ml 160 ml Output Total 300 ml 375 ml Balance 180 ml 240 ml -215 ml Physical Exam General: Alert, Oriented X3, Cooperative, No acute distress Heart: Other (AFIB RVR) Lungs: Clear Abdomen: Soft Extremities: No cyanosis, Other (trace to +1 bilateral LE edema) Skin: No breakdown, No significant lesion Labs Labs: Laboratory Tests Test 06/15/21 16:23 06/15/21 21:17 06/16/21 03:30 06/16/21 08:41 Glucose (Fingerstick) 144 mg/dL (70-99) 128 mg/dL (70-99) 122 mg/dL (70-99) White Blood Count 19.7 x10^3/uL (4.0-11.0) Red Blood Count 4.56 x10^6/uL (4.30-5.70) Hemoglobin 9.4 g/dL (13.0-17.5) Hematocrit 30.4 % (39.0-53.0) Mean Corpuscular Volume 67 fL (79-100) Mean Corpuscular Hemoglobin 21 pg (25-35) Mean Corpuscular Hemoglobin Concent 31 g/dL (31-37) Red Cell Distribution Width 21.8 % (11.5-14.5) Platelet Count 258 x10^3/uL (140-400) Neutrophils (%) (Auto) 97 % (31-73) Lymphocytes (%) (Auto) 2 % (24-48) Monocytes (%) (Auto) 2 % (0-9) Eosinophils (%) (Auto) 0 % (0-3) Basophils (%) (Auto) 0 % (0-3) Neutrophils # (Auto) 19.1 x10^3/uL (1.8-7.7) Lymphocytes # (Auto) 0.3 x10^3/uL (1.0-4.8) Monocytes # (Auto) 0.3 x10^3/uL (0.0-1.1) Eosinophils # (Auto) 0.0 x10^3/uL (0.0-0.7) Basophils # (Auto) 0.0 x10^3/uL (0.0-0.2) Sodium Level 128 mmol/L (136-145) Potassium Level 3.8 mmol/L (3.5-5.1) Chloride Level 97 mmol/L (98-107) Carbon Dioxide Level 24 mmol/L (21-32) Anion Gap 7 (6-14) Blood Urea Nitrogen 57 mg/dL (8-26) Creatinine 1.7 mg/dL (0.7-1.3) Estimated GFR (Cockcroft-Gault) 47.3 Glucose Level 112 mg/dL (70-99) Calcium Level 7.5 mg/dL (8.5-10.1) Magnesium Level 2.4 mg/dL (1.8-2.4) Review of Systems Review of Systems: ROS negative except as noted in HPI. Assessment and Plan Assessmemt and Plan Assessment: Acute kidney injury Congestive heart failure Hypoxia Left lower lobe pneumonia Plan: Cardiac monitoring Serial cardiac enzymes Serial EKG Appreciate cardiology input Continue home meds DVT ppx PT/OT FULL CODE Comment Review of Relevant I have reviewed the following items jarvis (where applicable) has been applied. Medications: Current Medications Medications (Trade) Dose Ordered Sig/Nathaly Route PRN Reason Start Time Stop Time Status Last Admin Dose Admin Azithromycin 500 mg/Sodium Chloride 250 ml @ 250 mls/hr Q24H IV 06/15/21 18:00 06/15/21 16:29 Ceftriaxone Sodium (Rocephin) 1 gm Q24H IVP 06/15/21 18:00 06/15/21 16:29 Lactobacillus Rhamnosus (Culturelle) 1 cap BID PO 06/15/21 21:00 06/16/21 08:43 Aspirin (Ecotrin) 81 mg [id number] PO 06/16/21 08:00 06/16/21 08:43 Digoxin (Lanoxin) 250 mcg 1X ONCE IV 06/15/21 16:00 06/15/21 16:01 DC 06/15/21 13:39 Sodium Chloride 500 ml @ 500 mls/hr 1X ONCE IV 06/16/21 02:00 06/16/21 02:59 DC 06/16/21 02:21 Justifications for Admission Other Justification chf exacerbation and Pneumonia MARTY SANTOYO K III DO Jun 16, 2021 12:14
--- NOTE | 2021-06-16 13:00 | NUR ---
Assumed care of patient at this time. Addendum: 06/16/21 at 1346 by MARTIN GUTIERREZ RN charted this under Helen Carbajal's name, but should have been mine, Martin Gutierrez.
[2021-06-16] MEDS: cefTRIAXone IV Push 1 GM VIAL. IVP SCH (17:52)
[2021-06-16] MEDS: AZITHROMYCIN 500 MG in IV NORMAL SALINE 250ML 250 ML IV SCH (17:53)
[2021-06-17 02:46] VITALS: BP 108/72
[2021-06-17 04:02] LABS: BASO % 0 % (0-3); EOS % 0 % (0-3); HEMATOCRIT 31.2 % (39.0-53.0); HEMOGLOBIN 9.6 g/dL (13.0-17.5); LYMPH # 0.4 x10^3/uL (1.0-4.8); LYMPH % 5 % (24-48); MEAN CORPUSCULAR HEMOGLOBIN 21 pg (25-35); MEAN CORPUSCULAR HGB CONC 31 g/dL (31-37); MEAN CORPUSCULAR VOLUME 67 fL (79-100); MONO # 0.3 x10^3/uL (0.0-1.1); MONO % 4 % (0-9); NEUT % 91 % (31-73); PLATELET COUNT 321 x10^3/uL (140-400); RED BLOOD COUNT 4.66 x10^6/uL (4.30-5.70); RED CELL DISTRIBUTION WIDTH 20.7 % (11.5-14.5); WHITE BLOOD COUNT 7.7 x10^3/uL (4.0-11.0)
[2021-06-17 04:15] LABS: CALCIUM 7.8 mg/dL (8.5-10.1); CREATININE 1.2 mg/dL (0.7-1.3); GFR 70.7; MAGNESIUM 2.2 mg/dL (1.8-2.4); POTASSIUM 3.8 mmol/L (3.5-5.1)
[2021-06-17 07:42] VITALS: BP 110/55
[2021-06-17] MEDS: INSULIN LISPRO 300 UNITS/3 ML VIAL. SQ SCH ×3 (08:00→16:52)
[2021-06-17] MEDS: LACTOBACILLUS RHAMNOSUS GG 1 CAPSULE. PO SCH (08:24)
[2021-06-17] MEDS: ASPIRIN ENTERIC COATED 81 MG TABLET.DR. PO SCH (08:24)
[2021-06-17] MEDS: HEPARIN for SUB-Q USE 5,000 UNIT/ML VIAL. SQ SCH (08:31)
--- NOTE | 2021-06-17 10:47 | PDOC ---
[employer] PROGRESS NOTE Date of Service DOS: DATE: 06/17/21 TIME: 10:44 Chief Complaint Chief Complaint Acute kidney injury Congestive heart failure Hypoxia Pneumonia A. fib with RVR Anemia Hypertension Leukocytosis Diabetes Hyperlipidemia AAA status post repair in January 2018 History of Present Illness History of Present Illness 06/17 Patient seen and examined at beside. Patient resting comfortably and is conversant. Patient complains of productive cough that keeps him from sleeping. Patient notes some blood and lara mucus from cough and otherwise feels fine. Chart reviewed. Case discussed with RN 06/16 Patient seen and examined at beside. Patient resting comfortably and is conversant. Chart reviewed. Case discussed with RN and case management. 06/15 Patient seen and examined at beside. Chart reviewed. Case discussed with RN and case management. History obtained from discussion with the ED physician and chart review: Patient is a 80-year-old -[place] male with past medical history of CHF with LVEF of 30%, diabetes mellitus type 2, hypertension, asthma who comes in with shortness of breath and cough for 1 week. He also complained of weakness in his legs and some phlegm. Endorses also lower extremity swelling that has increased from his baseline. Denies any fevers, chest pain, abdominal pain, diarrhea, syncope, dizziness, hematuria or palpitations. No recent travel or sick contacts. He is vaccinated against Covid. Vitals/I&O Vitals/I&O: Vital Signs Date Time Temp Pulse Resp B/P (MAP) Pulse Ox O2 Delivery O2 Flow Rate FiO2 06/17/21 08:00 Nasal Cannula 2.0 06/17/21 07:42 97.7 85 16 110/55 (73) 100 97.7 I & O 06/16/21 06/16/21 06/17/21 15:00 23:00 07:00 Intake Total 240 ml 480 ml 0 ml Output Total 200 ml Balance 240 ml 280 ml 0 ml Physical Exam General: Alert, Oriented X3, Cooperative, No acute distress Heart: Other (AFIB RVR) Lungs: Clear Abdomen: Soft Extremities: No cyanosis, Other (trace to +1 bilateral LE edema) Skin: No breakdown, No significant lesion Labs Labs: Laboratory Tests Test 06/16/21 12:11 06/16/21 17:27 06/16/21 20:27 06/17/21 03:30 Glucose (Fingerstick) 140 mg/dL (70-99) 159 mg/dL (70-99) 118 mg/dL (70-99) White Blood Count 7.7 x10^3/uL (4.0-11.0) Red Blood Count 4.66 x10^6/uL (4.30-5.70) Hemoglobin 9.6 g/dL (13.0-17.5) Hematocrit 31.2 % (39.0-53.0) Mean Corpuscular Volume 67 fL (79-100) Mean Corpuscular Hemoglobin 21 pg (25-35) Mean Corpuscular Hemoglobin Concent 31 g/dL (31-37) Red Cell Distribution Width 20.7 % (11.5-14.5) Platelet Count 321 x10^3/uL (140-400) Neutrophils (%) (Auto) 91 % (31-73) Lymphocytes (%) (Auto) 5 % (24-48) Monocytes (%) (Auto) 4 % (0-9) Eosinophils (%) (Auto) 0 % (0-3) Basophils (%) (Auto) 0 % (0-3) Neutrophils # (Auto) 7.0 x10^3/uL (1.8-7.7) Lymphocytes # (Auto) 0.4 x10^3/uL (1.0-4.8) Monocytes # (Auto) 0.3 x10^3/uL (0.0-1.1) Eosinophils # (Auto) 0.0 x10^3/uL (0.0-0.7) Basophils # (Auto) 0.0 x10^3/uL (0.0-0.2) Sodium Level 131 mmol/L (136-145) Potassium Level 3.8 mmol/L (3.5-5.1) Chloride Level 97 mmol/L (98-107) Carbon Dioxide Level 28 mmol/L (21-32) Anion Gap 6 (6-14) Blood Urea Nitrogen 37 mg/dL (8-26) Creatinine 1.2 mg/dL (0.7-1.3) Estimated GFR (Cockcroft-Gault) 70.7 Glucose Level 98 mg/dL (70-99) Calcium Level 7.8 mg/dL (8.5-10.1) Magnesium Level 2.2 mg/dL (1.8-2.4) Test 06/17/21 08:03 Glucose (Fingerstick) 114 mg/dL (70-99) Review of Systems Review of Systems: ROS negative except as otherwise noted in HPI. Assessment and Plan Assessmemt and Plan Acute kidney injury Congestive heart failure Hypoxia Pneumonia A. fib with RVR Anemia Hypertension Leukocytosis Diabetes Hyperlipidemia AAA status post repair in January 2018 Plan: Cardiac monitoring Serial cardiac enzymes Serial EKG Continue Rocephin and azithromycin O2 per nasal care Trend labs PT OT Home meds Appreciate cardiology input Continue home meds Adding in Robitussin cough DVT ppx PT/OT FULL CODE Per cardiology see the following recommendations and we certainly agree and appreciate their input; Received lasix will further pending BP trend. Presently he is not in distress and no symptoms in regards to low BP. Will hold BP regimen for now Digoxin IV x1. Will maintain rate control. If rate is not controlled will repeat digoxin otherwise will consider amiodarone. Not a candidate for chronic anticoagulation due to GI bleed. Continue with ASA for stroke prevention Consider for [employer] on an outpatient basis for primary preventions of SCD. Previously on LifeVest but discontinued as it was uncomfortable Outpatient referral for [facility]. Supportive care Continue Abx treatment Comment Review of Relevant I have reviewed the following items jarvis (where applicable) has been applied. Justifications for Admission Other Justification chf exacerbation and Pneumonia MARTY SANTOYO III DO Jun 17, 2021 10:47
[2021-06-17 11:00] VITALS: BP 120/59
[2021-06-17] MEDS: guaiFENesin/CODEINE 100mg/10mg 5 ML LIQUID PO PRN ×2 (12:40→17:59)
[2021-06-17 15:00] VITALS: BP 103/56
--- NOTE | 2021-06-17 15:46 | PDOC ---
CARDIOLOGY PROGRESS NOTE SUBJECTIVE: No acute events overnight. No arrhythmias overnight. He reports his breathing is improved No chest pain. He continues to have mild intermittent cough OBJECTIVE: Vital Signs/I&O: Vital Signs Date Time Temp Pulse Resp B/P (MAP) Pulse Ox O2 Delivery O2 Flow Rate FiO2 06/17/21 11:00 97.6 73 16 120/59 (79) 95 Room Air 97.6 06/17/21 08:00 2.0 I & O 06/16/21 06/16/21 06/17/21 15:00 23:00 07:00 Intake Total 240 ml 480 ml 0 ml Output Total 200 ml Balance 240 ml 280 ml 0 ml Objective: GEN.: No apparent distress. Alert and oriented. HEENT: Head is normocephalic, atraumatic NECK: Supple. LUNGS: Clear to auscultation. HEART: Irregularly irregular, S1, S2 present. Peripheral pulses intact ABDOMEN: Soft, nontender. Positive bowel sounds. EXTREMITIES: Without any cyanosis. NEUROLOGIC: Normal speech, normal tone PSYCHIATRIC: Normal affect, normal mood. SKIN: No ulcerations CURRENT MEDICATIONS: Current Medications Medications (Trade) Dose Ordered Sig/Nathaly Route PRN Reason Start Time Stop Time Status Last Admin Dose Admin Guaifenesin/ Codeine Phosphate (Robitussin Ac) 5 ml PRN Q6HRS PRN PO COUGH 06/17/21 12:15 06/17/21 12:40 DIAGNOSTIC TESTING: Labs reviewed. Creatinine improved. Elevated white blood cell count has resolved and improved significantly. Labs: Laboratory Tests 06/17/21 03:30 Laboratory Tests Test 06/16/21 17:27 06/16/21 20:27 06/17/21 03:30 06/17/21 08:03 Glucose (Fingerstick) 159 mg/dL (70-99) H 118 mg/dL (70-99) H 114 mg/dL (70-99) H White Blood Count 7.7 x10^3/uL (4.0-11.0) Red Blood Count 4.66 x10^6/uL (4.30-5.70) Hemoglobin 9.6 g/dL (13.0-17.5) L Hematocrit 31.2 % (39.0-53.0) L Mean Corpuscular Volume 67 fL (79-100) L Mean Corpuscular Hemoglobin 21 pg (25-35) L Mean Corpuscular Hemoglobin Concent 31 g/dL (31-37) Red Cell Distribution Width 20.7 % (11.5-14.5) H Platelet Count 321 x10^3/uL (140-400) Neutrophils (%) (Auto) 91 % (31-73) H Lymphocytes (%) (Auto) 5 % (24-48) L Monocytes (%) (Auto) 4 % (0-9) Eosinophils (%) (Auto) 0 % (0-3) Basophils (%) (Auto) 0 % (0-3) Neutrophils # (Auto) 7.0 x10^3/uL (1.8-7.7) Lymphocytes # (Auto) 0.4 x10^3/uL (1.0-4.8) L Monocytes # (Auto) 0.3 x10^3/uL (0.0-1.1) Eosinophils # (Auto) 0.0 x10^3/uL (0.0-0.7) Basophils # (Auto) 0.0 x10^3/uL (0.0-0.2) Sodium Level 131 mmol/L (136-145) L Potassium Level 3.8 mmol/L (3.5-5.1) Chloride Level 97 mmol/L (98-107) L Carbon Dioxide Level 28 mmol/L (21-32) Anion Gap 6 (6-14) Blood Urea Nitrogen 37 mg/dL (8-26) H Creatinine 1.2 mg/dL (0.7-1.3) Estimated GFR (Cockcroft-Gault) 70.7 Glucose Level 98 mg/dL (70-99) Calcium Level 7.8 mg/dL (8.5-10.1) L Test 06/17/21 11:39 Glucose (Fingerstick) 111 mg/dL (70-99) H ASSESSMENT: 1. Nonischemic cardiomyopathy with an echocardiogram in March 2021 with an EF of 30 to 35% and RVSP of 60 mmHg 2. Atrial fibrillation with rapid ventricular response now with better rate co ntrol 3. Hypertension 4. Acute kidney injury resolved 5. Secondary pulmonary hypertension 6. Probable underlying pneumonia improved on medical therapy PLAN: 1. At this present time would reinitiate aspirin 81 mg daily start Toprol-XL 25 mg daily 2. His outpatient medications were held due to renal failure which was likely secondary to low output state in the setting of his A. fib with RVR. --At this present time would reinitiate Entresto 24/26 MG BID --Hold spironolactone, Lasix and potassium therapies. --Continue home Colace and Nexium I reviewed his medication list with the patient and we will have him follow-up in the office in the near future and based on his volume status we will then consider initiation of diuretic therapies. Supportive care for now. Continue aspirin for anticoagulation given his prior history of severe bleeding and anemia. Consider outpatient referral to [facility] for heart failure management and left atrial pannus occlusion therapies. Discussed with nursing staff. Justicifation of Admission Dx: Justifications for Admission: Justification of Admission Dx: Yes CHF: Cardiac Arrhythmias MEKA VARGAS MD Jun 17, 2021 15:46
[2021-06-17] MEDS ORDERED: AMOX1TAB61 PO (17:33)
[2021-06-17] MEDS: AZITHROMYCIN 500 MG in IV NORMAL SALINE 250ML 250 ML IV SCH (18:00)
[2021-06-17] MEDS: cefTRIAXone IV Push 1 GM VIAL. IVP SCH (18:00)
--- NOTE | 2021-06-19 11:36 | DS ---
DATE OF DISCHARGE: 06/17/2021 ADMITTING DIAGNOSES: Acute on chronic systolic and diastolic heart failure, respiratory failure, left lower lobe pneumonia, microcytic anemia, hyponatremia, hypomagnesemia, acute kidney injury, malnutrition. DISCHARGE DIAGNOSIS: Resolving heart failure. CONSULTS: Cardiology. PROCEDURES: None. HOSPITAL COURSE: The patient is a pleasant middle-aged male who presented with a combination of heart failure and pneumonia and respiratory failure. He was admitted. We gave him IV antibiotics and IV Lasix, home meds and DVT prophylaxis. We consulted Cardiology, who noted that he had a nonischemic cardiomyopathy with an EF of 30%-35%. He also had AFib with RVR, which we were able to control with negative chronotropic agents. Cardiology also put him on Entresto one b.i.d. They held his Aldactone. They continued his other meds and basically yesterday when I saw him, he was doing much better. Cardiology cleared him for discharge. We discharged to home with close outpatient followup. DISPOSITION: Home. ACTIVITY: As tolerated. DIET: Low sodium. DISCHARGE MEDICATIONS: Please see the MRAD. Albuterol 2 puffs q. 6, Augmentin 875 p.o. b.i.d. for 1 more week, aspirin 81 a day, docusate 1 b.i.d., iron 325 a day, metoprolol XL 25 mg daily, omeprazole 20 a day, and Entresto one p.o. b.i.d. TOTAL TIME: [address]: Kathia TID: [id number]
== END 2021-06-17 20:21 | disposition home or self-care (01) | DRG 871 ==
LOC: ER 15:13 → 6 SOUTH 17:43
PROVIDERS: ADMIT Internal Medicine; ATTEND Internal Medicine
DX: A41.9 Sepsis, unspecified organism (principal); J18.9 Pneumonia, unspecified organism; E43 Unspecified severe protein-calorie malnutrition; I50.43 Acute on chronic combined systolic (congestive) and diastolic (congestive) heart failure; J96.01 Acute respiratory failure with hypoxia; N17.0 Acute kidney failure with tubular necrosis; E87.1 Hypo-osmolality and hyponatremia; I42.8 Other cardiomyopathies; I11.0 Hypertensive heart disease with heart failure; D50.9 Iron deficiency anemia, unspecified; E11.9 Type 2 diabetes mellitus without complications; E78.00 Pure hypercholesterolemia, unspecified; E78.5 Hyperlipidemia, unspecified; E83.42 Hypomagnesemia; E87.8 Other disorders of electrolyte and fluid balance, not elsewhere classified; I25.10 Atherosclerotic heart disease of native coronary artery without angina pectoris; I27.29 Other secondary pulmonary hypertension; I48.0 Paroxysmal atrial fibrillation; J45.909 Unspecified asthma, uncomplicated; I45.10 Unspecified right bundle-branch block; M19.90 Unspecified osteoarthritis, unspecified site; R79.89 Other specified abnormal findings of blood chemistry; I73.9 Peripheral vascular disease, unspecified; Z86.79 Personal history of other diseases of the circulatory system; Z87.891 Personal history of nicotine dependence; Z20.822 Contact with and (suspected) exposure to COVID-19
CPT/HCPCS: 36415; 71045; 80048; 80053; 81001; 82962; 83605; 83735; 83880; 84100; 84145; 84484; 85007; 85025; 87040; 87086; 87426; 87449; 87641; 87804; 93005; 96374; J0456; J0696; J1160; J1644; J1815; J1940; J3475; J3490; J7040; J7050; U0003; U0005; 97530-GP; 97535-GO; 99285-25; G0378; J7030